=== PATIENT | female | born 1985 | race Caucasian/White ===

== ENCOUNTER 2018-05-17 08:13 | Emergency (ER) | payer OTHER ==
[~2018-05-17] VITALS: Ht 165.1 cm; Wt 62.6 kg
[~2018-05-17 08:13] MED LIST: OXYC10TE14 PO; PAX10 PO; TRAM50TA1 PO
[2018-05-17 08:20] VITALS: BP 126/72
--- NOTE | 2018-05-17 08:35 | NUR ---
pt bib self with c/o right sided groin pain radiating to left sided groin pain x 1 week, worse yesterday. Patient also reports of chills, but denies any n/v/d, vaginal bleeding, vaginal discharge, or recent injury. hx--pancreatitis, rx--tramadol. PATIENT STATES PAIN OF 10/10 AT THIS TIME; VSS; PATIENT POSITIONED FOR COMFORT; HOB ELEVATED; BEDRAILS UP X1; BED DOWN. ER MD MADE AWARE OF PT STATUS.
[2018-05-17] MEDS ORDERED: ONDANSETRON 4 MG/2 ML VIAL IVP ONE (09:00)
[2018-05-17] MEDS ORDERED: NACL 0.9% 1,000 ML IV ONE (09:00)
[2018-05-17] MEDS ORDERED: KETOROLAC 30 MG/ML VIAL IVP ONE (09:00)
[2018-05-17 09:17] LABS: LYMPHOCYTES # (AUTO) 0.4 K/uL (2.5-16.5); MEAN CORPUSCULAR HEMOGLOBIN 19 pg (27-31); MONOCYTES # (AUTO) 0.7 K/uL (0.8-1.0); NEUTROPHILS # (AUTO) 11.7 K/uL (1.8-7.7); RED CELL DISTRIBUTION WIDTH 20.4 % (11.6-13.7); WHITE BLOOD COUNT (AUTO) 12.9 K/uL (4.8-10.8)
[2018-05-17 09:22] LABS: BASOPHILS % (AUTO) 0.3 % (0.0-2.0); HEMATOCRIT 27.9 % (36-48); LYMPHOCYTES % (AUTO) 2.9 % (20.5-51.1); MEAN CORPUSCULAR HGB CONC 29 g/dL (33-37); MEAN CORPUSCULAR VOLUME 65.2 fL (80-94); MONOCYTES % (AUTO) 5.7 % (1.7-9.3); NEUTROPHILS % (AUTO) 91.1 % (42.2-75.2); PLATELET COUNT (AUTO) 162 K/uL (140-450); RED BLOOD CELL COUNT(AUTO) 4.28 MIL/uL (4.20-5.40)
[2018-05-17 09:39] LABS: ALBUMIN 3.3 g/dL (3.4-5.0); ANION GAP 16.9 (8-16); CARBON DIOXIDE 24.8 mmol/L (21-32); CREATININE 0.8 mg/dL (0.6-1.3); POTASSIUM 3.7 mmol/L (3.5-5.1); TOTAL BILIRUBIN 1.9 mg/dL (0.0-1.0)
[2018-05-17] MEDS ORDERED: fentaNYL 0.05 MG/ML VIAL IVP ONE (11:05)
[2018-05-17 12:12] VITALS: BP 120/76
--- NOTE | 2018-05-17 12:12 | NUR ---
Patient discharged with v/s stable. Written and verbal after care instructions given and explained. Patient alert, oriented and verbalized understanding of instructions.Ambulatory with steady gait. All questions addressed prior to discharge. ID band removed. Patient advised to follow up with PMD. Rx of zofran odt, tramadol 50mg, motrin 800mg given. Patient educated on indication of medication including possible reaction and side effects. Opportunity to ask questions provided and answered.
== END 2018-05-17 12:12 | disposition home or self-care (01) ==
LOC: MED 08:13
DX: N83.202 Unspecified ovarian cyst, left side (principal); E11.9 Type 2 diabetes mellitus without complications; Z79.899 Other long term (current) drug therapy
CPT/HCPCS: 36415; 76830; 80053; 81002; 81025; 82948; 85025; 96374; 96375; 99285; J1885; J2405; J3010; Q0092; J7030

== ENCOUNTER 2018-05-24 08:33 | Inpatient (IN) | payer OTHER ==
[~2018-05-24] VITALS: Ht 160 cm; Wt 61.2 kg
[2018-05-24 08:38] VITALS: BP 120/83
--- NOTE | 2018-05-24 08:45 | NUR ---
PATIENT AMBULATED TO BED 2 AT THIS TIME.
--- NOTE | 2018-05-24 08:59 | NUR ---
32 YO F TO ER FOR ABD PAIN X1WK. PT SEEN FOR ABDOMINAL/PELVIC PAIN LAST WEEK, WENT TO [facility] 2 DAYS AGO, SAW [facility]IMARY YESTERDAY AND WAS REFERRED BACK TO ER FOR ABDOMINAL PAIN, WATER RETENTION, ABDOMINAL DISTENTION, AND ABNORMAL LABS. PAIN 10/10. REPORTS NAUSEA, DENIES V/D. ABD ROUND/ FIRM / TENDER. BS ACTIVE. LS CLEAR THROUGHOUGHT, -CP, -SOB. BRISK CAP REFILL, AAOX4. PT STATS BURNING AND PAIN WITH URINATION. WILL CONTINUE TO MONITOR. ER MD MADE AWARE. HX: PANCREATITIS, ILIOSTOMY WITH REVERSAL , GALL BLADDER REMOVAL RX: NORCO
--- NOTE | 2018-05-24 08:59 | NUR ---
Note undone in EDM - 05/24/18 at 0928 by [facility] 32 YO F TO ER FOR ABD PAIN X1WK. PT SEEN FOR ABDOMINAL/PELVIC PAIN LAST WEEK, WENT TO [facility] 2 DAYS AGO, SAW [facility]IMARY YESTERDAY AND WAS REFERRED BACK TO ER FOR ABDOMINAL PAIN, WATER RETENTION, ABDOMINAL DISTENTION, AND ABNORMAL LABS. PAIN 05/09. REPORTS NAUSEA, DENIES V/D. ABD ROUND/ FIRM / TENDER. BS ACTIVE. LS CLEAR THROUGHOUGHT, -CP, -SOB. BRISK CAP REFILL, AAOX4. PT STATS BURNING AND PAIN WITH URINATION. WILL CONTINUE TO MONITOR. ER MADE AWARE. HX: PANCREATITIS, ILIOSTOMY WITH REVERSAL , GALL BLADDER REMOVAL RX: NORCO
--- NOTE | 2018-05-24 09:01 | NUR ---
Patient being evaluated by physician at bedside.
--- NOTE | 2018-05-24 09:32 | NUR ---
DR SOLIS AT BEDSIDE FOR PT EVALUATION
[2018-05-24] MEDS ORDERED: ONDANSETRON 4 MG/2 ML VIAL IVP ONE (09:35)
[2018-05-24] MEDS ORDERED: MORPHINE SULFATE 4 MG/ML SYR IVP ONE ×2 (09:35→11:30)
--- NOTE | 2018-05-24 09:39 | NUR ---
LAB AT BEDSIDE
--- NOTE | 2018-05-24 09:47 | NUR ---
EMT AT BEDSIDE FRO EKG
[2018-05-24 10:02] LABS: BASOPHILS % (AUTO) 0.2 % (0.0-2.0); EOSINOPHILS % (AUTO) 0.4 % (0.0-4.0); HEMATOCRIT 22.1 % (36-48); LYMPHOCYTES # (AUTO) 0.7 K/uL (2.5-16.5); LYMPHOCYTES % (AUTO) 6.9 % (20.5-51.1); MEAN CORPUSCULAR HEMOGLOBIN 20 pg (27-31); MEAN CORPUSCULAR HGB CONC 30 g/dL (33-37); MEAN CORPUSCULAR VOLUME 65.4 fL (80-94); MONOCYTES # (AUTO) 0.6 K/uL (0.8-1.0); MONOCYTES % (AUTO) 5.8 % (1.7-9.3); NEUTROPHILS # (AUTO) 9.2 K/uL (1.8-7.7); NEUTROPHILS % (AUTO) 86.7 % (42.2-75.2); PLATELET COUNT (AUTO) 257 K/uL (140-450); RED BLOOD CELL COUNT(AUTO) 3.38 MIL/uL (4.20-5.40); RED CELL DISTRIBUTION WIDTH 21.1 % (11.6-13.7); WHITE BLOOD COUNT (AUTO) 10.6 K/uL (4.8-10.8)
[2018-05-24 10:16] LABS: ALBUMIN 2.3 g/dL (3.4-5.0); CARBON DIOXIDE 28.6 mmol/L (21-32); CREATININE 0.8 mg/dL (0.6-1.3); TOTAL BILIRUBIN 0.6 mg/dL (0.0-1.0)
--- NOTE | 2018-05-24 10:20 | NUR ---
PT RESTING IN BED WITH VSS. WILL CONTINUE TO MONITOR
[2018-05-24 10:29] LABS: HEMOGLOBIN 6.6 g/dL (12.0-16.0)
[2018-05-24 10:31] LABS: POTASSIUM 2.6 mmol/L (3.5-5.1)
[2018-05-24 10:32] LABS: APPEARANCE,URINE SLIGHTLY HAZY (CLEAR); COLOR,URINE YELLOW (YELLOW)
[2018-05-24 10:33] LABS: BILIRUBIN,URINE NEGATIVE (NEGATIVE); BLOOD, URINE NEGATIVE (NEGATIVE); LEUKOCYTE ESTERASE ,URINE NEGATIVE (NEGATIVE); NITRITE, URINE NEGATIVE (NEGATIVE); PH,URINE 6.5 (5.0-9.0); RBC,URINE NONE SEEN /HPF (0-5); UGLUCOSE NEGATIVE (NEGATIVE)
[2018-05-24 10:34] LABS: WBC,URINE 0-5 (RARE) /HPF (0-5)
[2018-05-24 10:34] LABS: PROTHROMBIN TIME 9.4 secs (10.8-13.4)
[2018-05-24] MEDS ORDERED: MAG SULF 2000 MG/WATER PREMIX 50 ML IV ONE (10:35)
[2018-05-24] MEDS ORDERED: KCL 20 MEQ/WATER INJ PREMIX 100 ML IV ONE (10:35)
[2018-05-24] MEDS ORDERED: HYDROcodone/APAP 5/325 MG 1 TAB TAB PO PRN (12:10)
[2018-05-24] MEDS ORDERED: ONDANSETRON 4 MG/2 ML VIAL IVP PRN (12:10)
--- NOTE | 2018-05-24 12:34 | NUR ---
PT RESTING IN NO APPEARENT DISTRESS WITH VSS. WILL CONTINUE TO MONITOR
--- NOTE | 2018-05-24 13:10 | NUR ---
Patient will be admitted to care of DR HUBER. Admited to TELE. Will go to room 107B. Belongings list completed. Report to SARKIS ESTRADA .
--- NOTE | 2018-05-24 14:00 | NUR ---
RECEIVED REPORT FROM ER VENITA AT BEDSIDE. PT CAN AMBULATE. 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 PT IS AOX4, SKIN IS INTACT, SELF AMBULATORY. VS NOTED NORMAL. O2 SAT 100% ON RA. NO SIGN OF DISTRESS NOTED. INFORMED PT THAT CAN POSSIBLY BE TRANSFUSING BLOOD IN PT BECAUSE OF LOW H&H. VERBALIZED UNDERSTANDING COLLECTED MRSA SWAN AND SENT TO LAB. PLACED CALL LIGHT WITHIN PT REACH. BED AT LOWER POSITION. DENIES PAIN AT THIS TIME. INFORMED HER TO USE CALL LIGHT FOR ANY HELP. PT HAS RT FA 20 G IV ACCESS. INFUSING K-RIDER FROM ER. VERBALIZED UNDERSTANDING. WILL CONTINUE TO MONITOR PT.
[2018-05-24] MEDS: MORPHINE SULFATE 4 MG/ML SYR IVP PRN ×2 (16:14→20:23)
--- NOTE | 2018-05-24 16:30 | NUR ---
OBTAINED CONSENT FOR BT FROM PT. PT AWAKE , WENT TO RESTROOM. NOS IGN OF DISTRESS NOTED. WILL PREPARE FOR BLOOD TRANSFUSION . VS NOTED T 98.9, BP 111/68, HR 91, RR 20, 02 SAT 100% ON RA . WILL OBTAIN BLOOD FROM LAB, PREPARED FOR BLOOD TRANSFUSION. WILL CONTINUE TO MONITOR PT.
--- NOTE | 2018-05-24 16:45 | NUR ---
INITIATED BLOOD TRANSFUSION ORDERED AND PER HOSPITAL PROTOCOL. NATALIE ESCOBAR WITNESSED THE PROCEDURE AND VERIFIED THE BLOOD PRODUCT. PT STABLE AND CALM. NO DISTRESS NOTED. WILL CONTINUE TO MONITOR PT EVRY 15 MIN FOR OBSERVING ANY TRANSFUSION REACTION AND THEN FOR HALF HOUR AND THEN EVERY HOUR UNTIL THE BLOOD TRANSFUSION IS COMPLETED. WILL CONTINUE TO MONITOR PT.
--- NOTE | 2018-05-24 19:20 | NUR ---
ENDORSED PT TO PM NURSE AT BEDSIDE FOR CONTUINITY OF CARE. PT IN STABLE CONDITION. BLOOD TRANSFUSING WELL. NO SIGN OF DISTRESS.
--- NOTE | 2018-05-24 19:21 | NUR ---
RECEIVED REPORT FROM DAY SHIFT RN, FOR CONTINUITY OF CARE. PT IS A/OX4, ON ROOM AIR. PT IS ABLE TO MAKE NEEDS KNOWN, ABLE TO FOLLOW COMMANDS. PT BREATHS EQUAL AND UNLABORED. PT SKIN IS INTACT. PT AMBULATES WITH STEADY GAIT. PT HAS A 20G IV TO LEFT AC, ASYMPTOMATIC AND INTACT. DISCUSSED PLAN OF CARE WITH PT, PT VERBALIZED UNDERSTANDING. VITAL SIGNS WITHIN NORMAL LIMITS. PT STABLE, NO SIGNS OF DISTRESS NOTED AT THIS TIME. BED IN LOWEST POSITION, BED ALARM ON. CALL LIGHT WITHIN REACH, WILL CONTINUE TO MONITOR.
--- NOTE | 2018-05-24 19:55 | NUR ---
BLOOD TRANSFUSION ENDED. VITAL SIGNS WITHIN NORMAL LIMITS. PT STABLE, NO SIGNS OF DISTRESS NOTED AT THIS TIME. BED IN LOWEST POSITION, BED ALARM ON. CALL LIGHT WITHIN REACH, WILL CONTINUE TO MONITOR.
[2018-05-24] MEDS: ACETAMINOPHEN 325 MG TAB PO PRN (19:59)
[2018-05-24 20:00] VITALS: BP 121/77
--- NOTE | 2018-05-24 20:25 | NUR ---
ADMINISTERED MORPHINE FOR PAIN, PT TOLERATED WELL.
[2018-05-24] MEDS: diphenhydrAMINE 50 MG/ML VIAL IVP PRN (21:23)
[2018-05-24] MEDS ORDERED: DOXYCYCLINE 100 MG in DEXTROSE 5% 100 ML IV SCH (21:25)
--- NOTE | 2018-05-24 21:25 | NUR ---
DR HUBER HERE TALKING TO PT, RECEIVED VERBAL ORDER FOR BENADRYL 25MG IVP BEFORE TRANSFUSION AND BENADRYL 25MG PO Q4H PRN ITCHING. DR HUBER ARRANGING FOR DR CUETO TO CONSULT WITH PT.
[2018-05-24] MEDS ORDERED: metroNIDAZOLE 500 MG/NS PREMIX 100 ML IV SCH (22:30)
[2018-05-24] MEDS ORDERED: FUROSEMIDE 20 MG/2 ML VIAL IVP SCH (22:30)
--- NOTE | 2018-05-24 23:00 | NUR ---
DR CUETO CALLED TO MAKE SURE PT GOT 3 UNITS OF BLOOD, A HENDERSON CATHETER WITH URINE SENT TO LAB, TO STOP GIVING MORPHINE FOR PAIN, AND FOR PT TO BE NPO AFTER MIDNIGHT.
[2018-05-25 00:12] VITALS: BP 112/67
--- NOTE | 2018-05-25 00:55 | NUR ---
BLOOD TRANSFUSION STARTED, SIGNS OF DISTRESS NOTED AT THIS TIME. WILL MONITOR CLOSELY. Addendum: 05/25/18 at 0640 by Stacia Borja RN DISREGARD, WRONG INTERVENTION.
--- NOTE | 2018-05-25 00:55 | NUR ---
BLOOD TRANSFUSION ENDED, PT TOLERATED WELL. VITAL SIGNS WITHIN NORMAL LIMITS. PT STABLE, NO SIGNS OF DISTRESS NOTED AT THIS TIME. BED IN LOWEST POSITION, BED ALARM ON. CALL LIGHT WITHIN REACH, WILL CONTINUE TO MONITOR.
[2018-05-25] MEDS: ACETAMINOPHEN 325 MG TAB PO PRN (01:45)
[2018-05-25] MEDS: diphenhydrAMINE 50 MG/ML VIAL IVP PRN (01:48)
[2018-05-25] MEDS: LEVOFLOXACIN 500 MG/D5W PREMIX 100 ML IV SCH ×2 (01:49→23:48)
[2018-05-25 01:56] LABS: APPEARANCE,URINE CLEAR (CLEAR); BILIRUBIN,URINE NEGATIVE (NEGATIVE); BLOOD, URINE NEGATIVE (NEGATIVE); COLOR,URINE YELLOW (YELLOW); LEUKOCYTE ESTERASE ,URINE NEGATIVE (NEGATIVE); NITRITE, URINE NEGATIVE (NEGATIVE); PH,URINE 7.5 (5.0-9.0); UGLUCOSE NEGATIVE (NEGATIVE)
--- NOTE | 2018-05-25 02:00 | NUR ---
TRIED TO GET THIRD UNIT OF BLOOD FROM LAB. THIRD UNIT WAS NOT RELEASED DUE TO HOSPITAL POLICY ON BLOOD TRANSFUSION, CBC NEEDS TO BE DRAWN AFTER 2 UNITS. CBC WILL BE DRAWN.
[2018-05-25 03:17] LABS: BASOPHILS % (AUTO) 0.1 % (0.0-2.0); EOSINOPHILS # (AUTO) 0.1 K/uL (0-0.4); EOSINOPHILS % (AUTO) 0.7 % (0.0-4.0); HEMATOCRIT 28.3 % (36-48); LYMPHOCYTES # (AUTO) 0.8 K/uL (2.5-16.5); LYMPHOCYTES % (AUTO) 7.2 % (20.5-51.1); MEAN CORPUSCULAR HEMOGLOBIN 22 pg (27-31); MEAN CORPUSCULAR HGB CONC 31 g/dL (33-37); MEAN CORPUSCULAR VOLUME 70.3 fL (80-94); MONOCYTES # (AUTO) 0.7 K/uL (0.8-1.0); MONOCYTES % (AUTO) 6.3 % (1.7-9.3); NEUTROPHILS # (AUTO) 9.2 K/uL (1.8-7.7); NEUTROPHILS % (AUTO) 85.7 % (42.2-75.2); PLATELET COUNT (AUTO) 286 K/uL (140-450); RED BLOOD CELL COUNT(AUTO) 4.02 MIL/uL (4.20-5.40); RED CELL DISTRIBUTION WIDTH 24.9 % (11.6-13.7); WHITE BLOOD COUNT (AUTO) 10.8 K/uL (4.8-10.8)
[2018-05-25 03:23] LABS: HEMOGLOBIN 8.9 g/dL (12.0-16.0)
--- NOTE | 2018-05-25 03:30 | NUR ---
TALKED TO DR HEALY ABOUT NOT BEING ABLE TO GET THIRD UNIT OF BLOOD FOR PT, DUE TO HOSPITAL PROTOCOL AND AUTOMATIC TOE LASTER NOT GIVING UNIT. DR HEALY SAID TO TELL THE AUTOMATIC TOE LASTER IT IS A DR ORDER AND IT HAS TO BE DONE. AUTOMATIC TOE LASTER STILL SAYS IT CANNOT BE DONE. WILL CALL DR CUETO.
[2018-05-25] MEDS ORDERED: LACTATED RINGERS 1,000 ML IV SCH ×2 (03:55→08:30)
--- NOTE | 2018-05-25 03:55 | NUR ---
SPOKE TO DR CUETO ABOUT NOT BEING ABLE TO GET THIRD UNIT OF PRBC'S FROM LAB DUE TO PROTOCOL. DR VALENTE SAID IT WAS OK, WE WILL CHECK LABS AGAIN IN THE [place] AND GO FROM THERE. DR CUETO ALSO ORDERED LR FLUIDS @150ML/HR UNTIL AROUND 08:00, AT 08:00 RATE IS TO CHANGE TO 125ML/HR.
[2018-05-25 04:00] VITALS: BP 101/63
[2018-05-25] MEDS: metroNIDAZOLE 500 MG/NS PREMIX 100 ML IV SCH ×3 (05:13→21:37)
[2018-05-25 05:20] LABS: MAGNESIUM 2.1 mg/dL (1.8-2.4)
[2018-05-25 05:21] LABS: CARBON DIOXIDE 30.1 mmol/L (21-32); CREATININE 0.9 mg/dL (0.6-1.3); POTASSIUM 3.1 mmol/L (3.5-5.1); TOTAL BILIRUBIN 1.8 mg/dL (0.0-1.0)
[2018-05-25] MEDS ORDERED: INFLUENZA VIRUS VACCINE QUAD 0.5 ML SYR IMVAC PRN (07:05)
--- NOTE | 2018-05-25 07:25 | NUR ---
ENDORSED TO DAY SHIFT RN FOR CONTINUITY OF CARE, PT IN STABLE CONDITION.
--- NOTE | 2018-05-25 07:26 | NUR ---
RECEIVED REPORT FROM PM NURSE AT BEDSIDE. PT STABLE AND AWAKE. NO SIGN OF DISTRESS NOTED. KEPT NPO OFR POSSIBLE PROCEDURE. IVF INFUSING WELL. HAS FC IN PLACE. DRAINING WELL. PLACED CALL LIGHT WITHIN PT REACH. INFORMED TO USE CALL LIGHT FOR ANY HELP. WILL CONTINUE TO MONITOR PT.
[2018-05-25 08:00] VITALS: BP 95/54
--- NOTE | 2018-05-25 08:15 | NUR ---
DR CUETO PAGED AT [phone] REGARDING INDICATION FOR INTRAVENOUS PYELOGRAM PER RADIOLOGY.
--- NOTE | 2018-05-25 08:19 | NUR ---
RECEIVED CALL FROM RADIOLOGY, ASKING FOR INDICATION THAT MD HAS PLACED IV PYELOGRAM FOR PT. CHARGE NURSE AWARE ,CONTACTING DR VALENTE.
--- NOTE | 2018-05-25 08:37 | NUR ---
PATIENT HAS BEEN SCREENED AND CATEGORIZED MODERATE NUTRITION RISK. PATIENT WILL BE SEEN WITHIN 3-5 DAYS OF ADMISSION. 05/27/18 05/29/[address]
--- NOTE | 2018-05-25 08:40 | NUR ---
DR CUETO CALLED AT THE OFFICE, , TOLD TO PAGE DR CUETO AT [phone] CUETO PAGED AT THIS NUMBER NOW.
[2018-05-25] MEDS ORDERED: DOXYCYCLINE 100 MG in DEXTROSE 5% 100 ML IV SCH (09:00)
[2018-05-25] MEDS ORDERED: SODIUM PHOSPHATE 118 ML ENEM RC PRN (09:20)
--- NOTE | 2018-05-25 09:23 | NUR ---
CALLED RADIOLOGY. INFORMED HER THAT PT NEEDS IV PYELOGRAM TO RULE OUT URETER OBSTRUCTION PER DR VALENTE, CHARGE NURSE AWARE. WILL GIVE FLEET ENEMA FIRST.
--- NOTE | 2018-05-25 10:20 | NUR ---
PT REQUESTED TO ADMINISTER FLEET BY HERSELF, CHARGE NURSE AWARE, OKAY WITH IT. INFORMED PT TO SQUEEZE ALL AMOUNT IN BOTTLE AND HOLD LONG SHE CAN IF SHE FEELS LIKE GOING TO RESTROOM. VERBALIZED UNDERSTANDING. LUBED BOTTLE OF FLEET ENEMA, GAVE TO PT. INFORMED HER TO USE CALL LIGHT FOR ANY HELP. PROVIDED PRIVACY TO PT. WILL CONTINUE TO MONITOR PT.
[2018-05-25 12:00] VITALS: BP 106/68
--- NOTE | 2018-05-25 14:30 | NUR ---
PT OUT FORM THE UNIT FOR XR OF ABDOMEN WITH CONTRAST. PT STABLE AT THIS TIME. WENT WITH STRAP CUTTER. WILL CONTINUE TO MONITOR PT.
--- NOTE | 2018-05-25 15:54 | NUR ---
Initial review faxed to [facility].
[2018-05-25 16:00] VITALS: BP 101/69
[2018-05-25] MEDS: MORPHINE SULFATE 4 MG/ML SYR IVP PRN ×2 (17:33→23:56)
[2018-05-25] MEDS: POTASSIUM CHL 20MEQ/D5-NS 1,000 ML IV SCH (17:34)
--- NOTE | 2018-05-25 17:45 | NUR ---
ADMINISTERED MORPHINE FOR PAIN TO PTAS PER DR HUBER ORDER. STARTED POTASSIUM 20 MEQ D5,.5NS @100 ML/HR TO PT FOR LOW POTASSIUM LEVEL. PT TOLERATE WELL. NO SIGN OF DISTRESS NOTED. WILL CONTINUE TO MONITOR PT.
--- NOTE | 2018-05-25 18:30 | NUR ---
DR VALENTE WITH PT. CHARGE NURSE AT BEDSIDE, EXAMINING PT. WILL CONTINUE TO MONITOR PT.
--- NOTE | 2018-05-25 19:30 | NUR ---
ENDORSED PT TO P NURSE AT BEDSIDE. PT IN STABLE CONDITION. DR VALENTE AT BEDSIDE. FAMILY MEMBER AT BEDSIDE.
--- NOTE | 2018-05-25 19:32 | NUR ---
RECEIVED REPORT FROM DAY SHIFT NURSE. AAOX4. FAMILY AT BEDSIDE. NO C/O PAIN OR SOB NOTED. IV TO LEFT AC #20G, SALINE LOCK AND RIGHT HAND #22G, PATENT AND INTACT. HENDERSON CATH IN PLACE, DRAINING CLEAR YELLOW URINE. DISCUSSED PLAN OF CARE, PT VERBALIZED UNDERSTANDING. SAFETY PRECAUTION IN PLACE. CALL LIGHT WITHIN REACH.
[2018-05-25 20:00] VITALS: BP 112/63
--- NOTE | 2018-05-25 20:00 | NUR ---
DR. CUETO ORDERED TO D/C HENDERSON CATH. HENDERSON CATH REMOVED. NO C/O PAIN.
--- NOTE | 2018-05-25 23:56 | NUR ---
PT C/O ABD PAIN 03/09. MORPHINE 4 MG IVP GIVEN.
[2018-05-26] VITALS (7 sets, daily range): BP systolic 98–118; BP diastolic 61–77
--- NOTE | 2018-05-26 02:45 | NUR ---
PT SLEEPING BUT EASILY AROUSABLE. NO S/S OF PAIN. NO RESP DISTRESS NOTED.
[2018-05-26] MEDS: POTASSIUM CHL 20MEQ/D5-NS 1,000 ML IV SCH ×2 (03:15→13:15)
--- NOTE | 2018-05-26 05:00 | NUR ---
PT SLEEPING. RESP EVEN AND UNLABORED. NO S/S OF PAIN.
[2018-05-26] MEDS: metroNIDAZOLE 500 MG/NS PREMIX 100 ML IV SCH ×3 (05:44→20:31)
[2018-05-26] MEDS: MORPHINE SULFATE 4 MG/ML SYR IVP PRN ×3 (06:16→18:39)
[2018-05-26 06:20] LABS: BASOPHILS % (AUTO) 0.3 % (0.0-2.0); EOSINOPHILS # (AUTO) 0.1 K/uL (0-0.4); EOSINOPHILS % (AUTO) 1.3 % (0.0-4.0); HEMATOCRIT 26.4 % (36-48); HEMOGLOBIN 8.1 g/dL (12.0-16.0); LYMPHOCYTES # (AUTO) 0.7 K/uL (2.5-16.5); LYMPHOCYTES % (AUTO) 7.8 % (20.5-51.1); MEAN CORPUSCULAR HEMOGLOBIN 22 pg (27-31); MEAN CORPUSCULAR HGB CONC 31 g/dL (33-37); MEAN CORPUSCULAR VOLUME 70.7 fL (80-94); MONOCYTES # (AUTO) 0.6 K/uL (0.8-1.0); MONOCYTES % (AUTO) 7.5 % (1.7-9.3); NEUTROPHILS % (AUTO) 83.1 % (42.2-75.2); PLATELET COUNT (AUTO) 288 K/uL (140-450); RED BLOOD CELL COUNT(AUTO) 3.73 MIL/uL (4.20-5.40); RED CELL DISTRIBUTION WIDTH 24.9 % (11.6-13.7); WHITE BLOOD COUNT (AUTO) 8.4 K/uL (4.8-10.8)
[2018-05-26 07:00] LABS: ALBUMIN 1.7 g/dL (3.4-5.0); ANION GAP 9.6 (8-16); CARBON DIOXIDE 28.3 mmol/L (21-32); CREATININE 0.7 mg/dL (0.6-1.3); TOTAL BILIRUBIN 0.6 mg/dL (0.0-1.0)
--- NOTE | 2018-05-26 07:11 | NUR ---
RECEIVED CRITICAL LAB VALUE K 2.9. WILL PAGE DR. MURRIETA, MISSION PLANNER FOR DR. HUBER.
[2018-05-26 07:12] LABS: POTASSIUM 2.9 mmol/L (3.5-5.1)
--- NOTE | 2018-05-26 07:15 | NUR ---
PAGED DR. MURRIETA. AWAITING FOR CALL BACK.
--- NOTE | 2018-05-26 07:16 | NUR ---
ENDORSED PT TO DAY SHIFT NURSE. PT IN STABLE CONDITION.
--- NOTE | 2018-05-26 07:18 | NUR ---
RECEIVED A CALL FROM DR. HUBER. MADE AWARE OF PT'S K LEVEL 2.9. MD TO SEE PT.
--- NOTE | 2018-05-26 07:27 | NUR ---
RECEIVED REPORT FROM HUMAN RESOURCES MANAGER MANUFACTURING RN. PT IN STABLE CONDITION, AO X4. SITTING UP IN BED AND SMILING, NO COMPLAINTS OF PAIN OR DISCOMFORT AT THIS TIME. SKIN INTACT. LUNGS CTA. HEART RHYTHM REGULAR. IV SITE PATENT AND ASYMPTOMATIC, INFUSING IVF PER MD ORDERS. UPDATED BOARD AND INTRODUCED SELF. EXPLAINED PLAN OF CARE TO PATIENT. ALL SAFETY PRECAUTIONS IN PLACE, WILL CONTINUE TO MONITOR. HUMAN RESOURCES MANAGER MANUFACTURING RN WILI HAS PAGED DR. MURRIETA REGARDING LOW POTASSIUM LEVEL OF 2.9. DR. MURRIETA AWARE.
[2018-05-26] MEDS ORDERED: SODIUM PHOSPHATE 118 ML ENEM RC SCH (08:00)
--- NOTE | 2018-05-26 08:02 | NUR ---
PT WOULD LIKE TO SELF-ADMINISTER THE FLEET ENEMA. EXPLAINED HOW TO ADMINISTER THE FLEET ENEMA. PT VERBALIZED UNDERSTANDING AND SAYS SHE SELF-ADMINISTERED IT YESTERDAY WELL.
--- NOTE | 2018-05-26 08:18 | NUR ---
PER US TECH, PATIENT DOES NOT HAVE TO BE NPO BEFORE US PELVIC BUT SHOULD HAVE A FULL BLADDER IF POSSIBLE. NOTIFIED PATIENT THAT US TECH WILL BE HERE IN 20-30 MINUTES AND THAT FULL BLADDER WOULD HELP WITH THE STUDY. PT VERBALIZED COMPLETE UNDERSTANDING. PT STILL HAS NOT SELF-ADMINISTERED FLEET ENEMA. PT STATES SHE WILL EAT NOW AND DO THE FLEET ENEMA AFTER THE US PELVIC.
--- NOTE | 2018-05-26 08:52 | NUR ---
PAGEYolis HUBER REGARDING LOW POTASSIUM OF 2.9 SINCE THERE ARE NO ORDERS YET. Addendum: 05/26/18 at 0927 by Tamara Chandler Meng, RN PT IN STABLE CONDITION, SINUS RHYTHM ON TELE. NO COMPLAINTS OF DISCOMFORT.
[2018-05-26] MEDS ORDERED: KCL 20 MEQ/WATER INJ PREMIX 200 ML IV SCH (10:00)
[2018-05-26] MEDS ORDERED: POTASSIUM CHLORIDE 10 MEQ TABER PO SCH (10:00)
--- NOTE | 2018-05-26 10:12 | NUR ---
PHARMACIST TO CLARIFY WITH DR. HUBER REGARDING PARESH MEEHAN POTASSIUM CHLORIDE, ALONG WITH IVF D4NS+20MEQ POTASSIUM. Addendum: 05/26/18 at 1013 by Tamara Chandler Meng RN IVF D5NS+20MEQ POTASSIUM.
--- NOTE | 2018-05-26 10:41 | NUR ---
PER PHARMACY, PATIENT IS TO RECEIVE KRIDER 40 MEQ OVER 4 HOURS TOTAL. ONLY PULLED OUT ONE BAG 20MQ KRIDER FROM [employer]. WILL GO TO PHARMACY TO OBTAIN SECOND BAG. Addendum: 05/26/18 at 1046 by Tamara Chandler Meng RN PER PHARMACIST, DR. HUBER TO CONTINUE TO D5NS +20MEQ AT 100ML/HR.
--- NOTE | 2018-05-26 10:46 | NUR ---
MULTIPLE EFFECT EVAPORATOR OPERATOR DROPPED OFF SECOND BAG K RIDER TO UNIT.
--- NOTE | 2018-05-26 11:23 | NUR ---
PATIENT COMPLAINING OF PAIN AT IV SITE FROM K RIDER. DECREASED RATE TO 20 ML/HOUR AND PATIENT WAS TOLERATING.
--- NOTE | 2018-05-26 11:34 | NUR ---
DR HUBER IN THE UNIT WANTED PATIENT TO BE TRANSFERRED TO HIGHER LEVEL OF CARE FOR PELVIC MASS CALLED IE SPOKE WITH JIMMY AND ALSO DR HUBER TALK TO JIMMY AND EXPLAINED AND JIMMY WILL CALL US BACK WITH AUTHORIZATION FOR TRANSFER.
--- NOTE | 2018-05-26 11:55 | NUR ---
RUNNING NS ALONG WITH K RIDER AT 50 ML/HOUR. PATIENT TOLERATING WELL.
--- NOTE | 2018-05-26 12:00 | NUR ---
JIMMY CALLED [employer] AND GAVE AUTHORIZATION FOR [facility] AND [facility] [phone] FOR BOTH.
--- NOTE | 2018-05-26 12:10 | NUR ---
SPOKE WITH SHABANA FROM [facility] ,REQUESTED ALL PATIENT'S INFORMATION, AND TO BE FAXED TO [phone] AND FAXED ALL PAPERWORK.
--- NOTE | 2018-05-26 13:05 | NUR ---
PATIENT HAS REFUSED KUB. DR. CUETO STATED THAT SHE DOES NOT NEED IT.
[2018-05-26 13:50] LABS: RAPID PLASMA REAGIN NON-REACTIVE (Non Reactiv)
--- NOTE | 2018-05-26 15:49 | NUR ---
PER KENYATTA AT [facility], SHE SENT THE PAPERWORK TO THEIR DOCTOR. THE DOCTOR STILL HAS TO ACCEPT THE PATIENT AND PT WILL NEED TO BE CLEARED BY INSURANCE. NO ETA ON TRANSFER. WILL INFORM THE PATIENT.
--- NOTE | 2018-05-26 17:27 | NUR ---
PT COMPLAINED OF IV SITE PAIN DURING INFUSION OF SECOND BAG OF K RIDER. PATIENT WANTS K RIDER TO BE STOPPED. WANTS TO RE-START WHEN IV MORPHINE AVAILABLE. OFFERED PO NORCO BUT PT REFUSES; WANTS TO WAIT FOR THE MORPHINE.
--- NOTE | 2018-05-26 18:45 | NUR ---
RE-STARTED SECOND BAG OF K RIDER. 60ML LEFT TO INFUSE. PT TOLERATING WELL, WILL CONTINUE TO MONITOR.
--- NOTE | 2018-05-26 18:51 | NUR ---
CALLED [facility]. THEY SAID PT MAY POSSIBLY BE TRANSFERRED TOMORROW, BUT DEFINITELY NOT TONIGHT.
--- NOTE | 2018-05-26 18:59 | NUR ---
REMOVED SL IV SITE ON LT AC. PATIENT WAS COMPLAINING OF ITCHING. DENIES PAIN AT RT HAND IV SITE INFUSING K RIDER. WILL CONTINUE TO MONITOR.
--- NOTE | 2018-05-26 19:27 | NUR ---
ENDORSED PLAN OF CARE TO NURSE PLASTICS RN. SHE IS AWARE OF TRANSFER PLANS. PT IN STABLE CONDITION.
--- NOTE | 2018-05-26 19:28 | NUR ---
RETURNED FLEET ENEMA TO [facility]. PT DID NOT USE.
--- NOTE | 2018-05-26 19:30 | NUR ---
RECEIVED REPORT FROM DAYSHIFT NURSE AT BEDSIDE FOR CONTINUITY OF CARE. PT AAOX4, IV NOTED R HAND 22G D5 1/2NS KCL 20 MEQ RATE 70ML/HR. NO SOB NO S/S OF DISTRESS ON RA. PT AMBULATORY. BED LOWERED CALL LIGHT WITHIN REACH WILL CONTINUE TO MONITOR.
--- NOTE | 2018-05-26 20:00 | NUR ---
PT WAS CRYING AND IN LOTS OF PAIN FROM IV FLUIDS K RIDER ON SECOND BAG. I STOPPED IT AND PT REFUSED TO RESTART. 20ML LEFT IN BAG. PLACED ICE BAG ON PT RIGHT ARM. WILL CONTINUE TO MONITOR.
--- NOTE | 2018-05-26 23:00 | NUR ---
NO SOB NO S/S OF DISTRESS ON RA. PT SLEEPING. WILL CONTINUE TO MONITOR.
[2018-05-27] MEDS: POTASSIUM CHL 20MEQ/D5-NS 1,000 ML IV SCH ×2 (00:39→09:15)
[2018-05-27] MEDS: MORPHINE SULFATE 4 MG/ML SYR IVP PRN ×4 (00:40→21:33)
[2018-05-27] MEDS: LEVOFLOXACIN 500 MG/D5W PREMIX 100 ML IV SCH ×2 (00:42→23:47)
--- NOTE | 2018-05-27 01:40 | NUR ---
PAIN MEDICATION 1HR AGO. PAIN MED EFFECTIVE PT IS SLEEPING NO SOB NO S/S OF DISTRESS ON RA. WILL CONTINUE TO MONITOR.
[2018-05-27 04:00] VITALS: BP 101/88
[2018-05-27] MEDS: metroNIDAZOLE 500 MG/NS PREMIX 100 ML IV SCH ×4 (04:49→21:33)
--- NOTE | 2018-05-27 05:30 | NUR ---
RECEIVED REPORT FROM JUSTINE ESTRADA. PT IS A&O X4 IS ON RA. NO DISTRESS NOTED. IV ON R HAND 22G. SKIN IS INTACT. PT DENIES PAIN AT THIS TIME. SAFETY MEASURES IN PLACE. CALL LIGHT WITHIN REACH.
--- NOTE | 2018-05-27 05:30 | NUR ---
ENDORSED REPORT TO DARIUSZ NIGHTSHIFT NURSE AT BEDSIDE FOR CONTINUITY OF CARE
[2018-05-27 06:57] LABS: BASOPHILS % (AUTO) 0.5 % (0.0-2.0); EOSINOPHILS # (AUTO) 0.1 K/uL (0-0.4); EOSINOPHILS % (AUTO) 1.6 % (0.0-4.0); HEMATOCRIT 29.8 % (36-48); LYMPHOCYTES # (AUTO) 0.9 K/uL (2.5-16.5); LYMPHOCYTES % (AUTO) 10.1 % (20.5-51.1); MEAN CORPUSCULAR HEMOGLOBIN 22 pg (27-31); MEAN CORPUSCULAR HGB CONC 30 g/dL (33-37); MEAN CORPUSCULAR VOLUME 72.7 fL (80-94); MONOCYTES # (AUTO) 0.5 K/uL (0.8-1.0); MONOCYTES % (AUTO) 6.3 % (1.7-9.3); NEUTROPHILS # (AUTO) 7.2 K/uL (1.8-7.7); NEUTROPHILS % (AUTO) 81.5 % (42.2-75.2); PLATELET COUNT (AUTO) 344 K/uL (140-450); RED BLOOD CELL COUNT(AUTO) 4.11 MIL/uL (4.20-5.40); RED CELL DISTRIBUTION WIDTH 25.7 % (11.6-13.7); WHITE BLOOD COUNT (AUTO) 8.8 K/uL (4.8-10.8)
--- NOTE | 2018-05-27 07:20 | NUR ---
RECEIVED BEDSIDE REPORT FROM AUTOMATION CONTROLS SPECIALIST RN. PT IN STABLE CONDITION. STATES 3/10 PELVIC PAIN BUT DOES NOT NEED PAIN MEDS AT THIS TIME. NO S/S ACUTE DISTRESS. LUNGS CTA. HEART RHYTHM REGULAR. PT IS AMBULATORY. IV SITE PATENT AND ASYMPTOMATIC, INFUSING IVF PER MD ORDERS. PENDING TRANSFER TO [facility]. ALL SAFETY PRECAUTIONS IN PLACE, WILL CONTINUE TO MONITOR.
--- NOTE | 2018-05-27 07:22 | NUR ---
ENDORSED PT TO DAY SHIFT. PT STABLE CONDITION
[2018-05-27 08:00] VITALS: BP 117/56
[2018-05-27 08:04] LABS: ANION GAP 11.4 (8-16); CARBON DIOXIDE 27.5 mmol/L (21-32); CREATININE 0.7 mg/dL (0.6-1.3); POTASSIUM 3.9 mmol/L (3.5-5.1); TOTAL BILIRUBIN 0.6 mg/dL (0.0-1.0)
[2018-05-27 08:05] LABS: ALBUMIN 1.9 g/dL (3.4-5.0)
--- NOTE | 2018-05-27 09:16 | NUR ---
ADMINISTERED MORPHINE IVP FOR C/O 02/06 PELVIC PAIN. VITALS STABLE. WILL CONTINUE TO MONITOR.
--- NOTE | 2018-05-27 10:30 | NUR ---
STOPPED D5NS+20 MEQ POTASSIUM PER MD ORDERS.
[2018-05-27 12:00] VITALS: BP 99/59
--- NOTE | 2018-05-27 12:37 | NUR ---
PER RAFA FROM [facility], TWO OF THEIR DOCTORS REJECTED THE CASE. THEY ARE STILL WORKING ON TRANSFER. [facility] RECOMMENDS REPEAT PELVIC US AND CT GUIDED DRAINAGE PELVIC FLUID COLLECTIONS. WILL CALL DR. HUBER TO INFORM. Addendum: 05/27/18 at 1253 by Tamara Chandler Meng, RN INFORMED REPLANTER JOWIE.
--- NOTE | 2018-05-27 14:38 | NUR ---
CALLED RAFA FROM [facility] [phone] HUBER REQUESTS THE [facility] DOCTOR TO CALL HIM DIRECTLY THIS IS A [id number] TRANSFER. RAFA SAID SHE WILL HAVE THE [facility] SKIVER HEEL TAP CALL DR. HUBER DIRECTLY.
--- NOTE | 2018-05-27 14:39 | NUR ---
NOTIFIED PATIENT THAT [facility] HAS NOT ACCEPTED HER AND THERE ARE NO TRANSFER DETAILS/PLANS FOR TODAY.
[2018-05-27 16:00] VITALS: BP 107/70
--- NOTE | 2018-05-27 17:13 | NUR ---
PER SURFBOARD MAKER JOWIE, SHE HAS ALREADY FAXED THE REQUESTED DOCUMENTS TO RAFA AT [facility].
--- NOTE | 2018-05-27 19:23 | NUR ---
ENDORSED PLAN OF CARE TO GIFT OFFICER RN. PT IN STABLE CONDITION.
--- NOTE | 2018-05-27 19:24 | NUR ---
RECEIVED REPORT FROM DAY SHIFT NURSE ANKITA-RN AT BEDSIDE. PT AOX4 WITH FAMILY AT BEDSIDE. AMBULATORY, ON ROOM AIR WITH IV SITE RIGHT HAND #22G-SL. SKIN INTACT. DISCUSSED PLAN OF CARE AND PT VERBALIZED UNDERSTANDING. NO S/S OF RESPIRATORY DISTRESS OR DISCOMFORT NOTED AT THIS TIME. BED IN LOWEST POSITION, BED BREAKS ON, BOTH SIDE RAILS UP. BED SIDE TABLE AND CALL LIGHT ARE WITHIN REACH. WILL CONTINUE TO MONITOR.
[2018-05-27 20:00] VITALS: BP 105/68
--- NOTE | 2018-05-27 20:00 | NUR ---
PT REPORTS PAIN 02/04 HOWEVER STATED SHE WILL WAIT UNTIL PAIN MEDICATION IS AVAILABLE BECAUSE ORAL PAIN MEDICATION "MAKES MY STOMACH HURT." NO S/S OF RESPIRATORY DISTRESS OR DISCOMFORT NOTED AT THIS TIME. WILL CONTINUE TO MONITOR.
--- NOTE | 2018-05-27 20:00 | NUR ---
VITAL SIGNS TAKEN AND TOLERATED WELL. NO S/S OF RESPIRATORY DISTRESS OR DISCOMFORT NOTED AT THIS TIME. WILL CONTINUE TO MONITOR.
--- NOTE | 2018-05-27 21:33 | NUR ---
SCHEDULED MEDICATION FLAGYL GIVEN AND TOLERATED WELL. IVF CHANGED TO NS 0.9% TKO 10ML/HR. NO S/S OF RESPIRATORY DISTRESS OR DISCOMFORT NOTED AT THIS TIME. WILL CONTINUE TO MONITOR.
--- NOTE | 2018-05-27 21:33 | NUR ---
MORPHINE GIVEN FOR PAIN 02/04. PT TOLERATED WELL. NO S/S OF RESPIRATORY DISTRESS OR DISCOMFORT NOTED AT THIS TIME. WILL CONTINUE TO MONITOR.
--- NOTE | 2018-05-27 23:47 | NUR ---
SCHEDULED MEDICATION LEVAQUIN GIVEN AND TOLERATED WELL. NO S/S OF RESPIRATORY DISTRESS OR DISCOMFORT NOTED AT THIS TIME. WILL CONTINUE TO MONITOR.
[2018-05-28] VITALS: BP 95/59
--- NOTE | 2018-05-28 | NUR ---
VITAL SIGNS TAKEN AND TOLERATED WELL. NO S/S OF RESPIRATORY DISTRESS OR DISCOMFORT NOTED AT THIS TIME. WILL CONTINUE TO MONITOR.
--- NOTE | 2018-05-28 02:00 | NUR ---
PT SLEEPING IN BED. NO S/S OF RESPIRATORY DISTRESS OR DISCOMFORT NOTED AT THIS TIME. WILL CONTINUE TO MONITOR.
[2018-05-28] MEDS: MORPHINE SULFATE 4 MG/ML SYR IVP PRN ×3 (03:41→14:24)
--- NOTE | 2018-05-28 03:41 | NUR ---
PT C/O PAIN 03/09 AND MEDICATED WITH MORPHINE. PT TOLERATED WELL. NO S/S OF RESPIRATORY DISCOMFORT NOTED AT THIS TIME. WILL CONTINUE TO MONITOR.
[2018-05-28 04:00] VITALS: BP 95/56
--- NOTE | 2018-05-28 04:00 | NUR ---
VITAL SIGNS TAKEN AND TOLERATED WELL. NO S/S OF RESPIRATORY DISCOMFORT NOTED AT THIS TIME. WILL CONTINUE TO MONITOR.
[2018-05-28] MEDS: metroNIDAZOLE 500 MG/NS PREMIX 100 ML IV SCH ×2 (04:54→13:08)
--- NOTE | 2018-05-28 04:54 | NUR ---
SCHEDULED MEDICATION FLAGYL GIVEN AND TOLERATED WELL. NO S/S OF RESPIRATORY DISCOMFORT NOTED AT THIS TIME. WILL CONTINUE TO MONITOR.
[2018-05-28 06:58] LABS: BASOPHILS % (AUTO) 0.4 % (0.0-2.0); EOSINOPHILS # (AUTO) 0.1 K/uL (0-0.4); EOSINOPHILS % (AUTO) 1.7 % (0.0-4.0); HEMATOCRIT 27.4 % (36-48); HEMOGLOBIN 8.2 g/dL (12.0-16.0); LYMPHOCYTES # (AUTO) 0.8 K/uL (2.5-16.5); LYMPHOCYTES % (AUTO) 9.5 % (20.5-51.1); MEAN CORPUSCULAR HEMOGLOBIN 22 pg (27-31); MEAN CORPUSCULAR HGB CONC 30 g/dL (33-37); MEAN CORPUSCULAR VOLUME 73.5 fL (80-94); MONOCYTES # (AUTO) 0.6 K/uL (0.8-1.0); MONOCYTES % (AUTO) 6.9 % (1.7-9.3); NEUTROPHILS # (AUTO) 7.3 K/uL (1.8-7.7); NEUTROPHILS % (AUTO) 81.5 % (42.2-75.2); PLATELET COUNT (AUTO) 363 K/uL (140-450); RED BLOOD CELL COUNT(AUTO) 3.73 MIL/uL (4.20-5.40); RED CELL DISTRIBUTION WIDTH 25.7 % (11.6-13.7); WHITE BLOOD COUNT (AUTO) 8.9 K/uL (4.8-10.8)
[2018-05-28 07:08] LABS: ALBUMIN 1.9 g/dL (3.4-5.0); ANION GAP 11.2 (8-16); CARBON DIOXIDE 28.6 mmol/L (21-32); CREATININE 0.7 mg/dL (0.6-1.3); POTASSIUM 3.8 mmol/L (3.5-5.1); TOTAL BILIRUBIN 0.5 mg/dL (0.0-1.0)
--- NOTE | 2018-05-28 07:09 | NUR ---
ENDORSED PT CARE TO DAY SHIFT NURSE SANTINO FOR CONTINUITY OF CARE.
--- NOTE | 2018-05-28 07:30 | NUR ---
RECEIVED PT ON BED AAOX4. NO SOB NOTED. NO C/O PAIN AT THIS TIME. IV TO RT HAND PATENT AND INTACT. CHEST, DIMINISHED AIR ENTRY TO THE BASES, OTHERWISE CLEAR. ABDOMEN SOFT, BOWEL SOUNDS PRESENT. 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 SMALL AMOUNTS OF VAGINAL BLEEDING, NO CLOTS NOTED PER PT. INSTRUCTED PT TO CALL FOR ASSISTANCE, CALL LIGHT WITHIN REACH, PT VERBALIZED UNDERSTANDING.
[2018-05-28 08:00] VITALS: BP 108/68
--- NOTE | 2018-05-28 10:24 | NUR ---
CALLED [facility] AND LEFT MESSAGE WITH TRANSFER CENTER TO CALL ME ABOUT TRANSFER. I CALLED JANET FROM [facility] ABOUT THIS PATIENT. SHE SAID SHE WOULD SPEAK WITH DR. HUBER, PATIENT MAY HAVE TO GO TO [place] INSTEAD. SHE ASKED [facility] TO FAX INFORMATION TO [facility] AT [phone], WHICH I DID.
[2018-05-28 12:00] VITALS: BP 99/68
--- NOTE | 2018-05-28 12:17 | NUR ---
SPOKE WITH KRISTEN FROM [facility] THIS AM. SHE SAID PER NOTES SHE HAD, THEIR PHYSICIAN WAS WAITING FOR US FROM [facility]. I CALLED JANET FROM [facility] AND SHE SAID SHE COULD FAX THE IMAGING RESULTS. I RECEIVED THE CT ABD AND PELVIS AND GB AND RIGHT UPPER QUADRANT US FROM [facility] FROM JANET. I CALLED KRISTEN AT [facility] AND TOLD HER WHAT I HAD AND I SAID I WOULD FAX THOSE TO HER. SHE SAID TO FAX TO [phone]. SHE ASKED IF I COULD GET FURTHER RECORDS FROM [facility].
--- NOTE | 2018-05-28 12:55 | NUR ---
RECEIVED A CALL FROM KENDALL FROM [facility]. THEY ARE ACCEPTED THE PATIENT. SHE WILL GO TO [address] PATY URIAS. CALL REPORT TO [phone]. I SPOKE WITH JIMMY AT [facility] , [phone] AND INFORMED HER. THE AUTH FOR [facility] IS [id number]. I CALLED KENDALL AT [facility] AND INFORMED HER. THE AUTH FOR TRANSPORT, [facility], IS [id number]. SET UP [facility] ALS TRANSPORT FOR 2P.M. I CALLED DR. HUBER AND INFORMED HIM THAT PATIENT WAS GOING TO [facility]. I CALLED KRISTEN AT [facility] AND INFORMED HER THAT PATIENT WAS ACCEPTED AT ANOTHER FACILITY. I CALLED DRU ESTRADA AND INFORMED HER.
--- NOTE | 2018-05-28 13:00 | NUR ---
REPORT GIVEN TO CARLOS-BAGGING SALVAGER NURSE AT [facility].
--- NOTE | 2018-05-28 14:30 | NUR ---
PT AGREEABLE TO TRANSFER TO A HIGHER OF CARE ([facility]). DISCHARGE INSTRUCTIONS GIVEN TO PT WHICH VERBALIZED FULL UNDERSTANDING OF THE REASON FOR TRANSFER.
--- NOTE | 2018-05-28 14:40 | NUR ---
PT WHEELED TO THE THE PARKING LOT BY [facility] IN STABLE CONDITION. PRESENT IV TO LEFT HAND SALINE LOCKED. NO SOB NOTED. NO C/O PAIN AT THIS TIME.
[2018-05-29 06:30] LABS: CHLAMYDIA TRACHOMATIS AMP DNA Negative (Negative)
== END 2018-05-28 14:40 | disposition short-term general hospital (02) | DRG 663 ==
LOC: MED 08:33 → MTU 12:06
PROVIDERS: ADMIT Hospitalist; ATTEND Hospitalist
PROC: 30233N1 Transfusion of Nonautologous Red Blood Cells into Peripheral Vein, Percutaneous Approach (ICD-10-PCS; principal; 2018-05-24)
PROC: BT141ZZ Fluoroscopy of Kidneys, Ureters and Bladder using Low Osmolar Contrast (ICD-10-PCS; 2018-05-25)
PROC: 3E02340 Introduction of Influenza Vaccine into Muscle, Percutaneous Approach (ICD-10-PCS; 2018-05-25)
DX: D62 Acute posthemorrhagic anemia (principal); E43 Unspecified severe protein-calorie malnutrition; N13.30 Unspecified hydronephrosis; E11.9 Type 2 diabetes mellitus without complications; E87.6 Hypokalemia; R19.00 Intra-abdominal and pelvic swelling, mass and lump, unspecified site; Z90.3 Acquired absence of stomach [part of]; Z90.49 Acquired absence of other specified parts of digestive tract; N73.9 Female pelvic inflammatory disease, unspecified; Z23 Encounter for immunization; Z68.23 Body mass index [BMI] 23.0-23.9, adult
CPT/HCPCS: 36415; 74400; 76856; 80053; 81001; 81003; 81025; 82378; 83540; 83605; 83690; 83735; 84100; 84702; 85025; 85045; 85610; 85651; 85730; 86140; 86592; 86886; 86900; 86901; 86920; 87040; 87081; 87086; 87491; 90658; 93005; 96365; 96366; 96368; 96375; 99285; J0696; J1200; J1940; J1956; J2270; J2405; J3475; J3480; J3490; J7030; J7060; J7120; P9016; Q0092; Q9967

== ENCOUNTER 2020-05-08 16:25 | Inpatient (IN) | payer MEDICAID, SELFPAY ==
[~2020-05-08] VITALS: Ht 167.6 cm; Wt 57.2 kg
[2020-05-08 16:31] VITALS: BP 131/87
--- NOTE | 2020-05-08 17:05 | NUR ---
dr fernandez at bedside evaluating pt.
[2020-05-08] MEDS ORDERED: IBUPROFEN 600 MG TAB PO ONE (17:10)
--- NOTE | 2020-05-08 17:15 | NUR ---
PELVIC/SUPRAPUBIC PAIN X 1 MONTH, INTERMITTENT NAUSEA, WEIGHT LOSS PT STATES THESE S/S OCCURED 2 YEARS AGO AND SHE WAS DIAGNOSED WITH ANEMIA AND OVARIAN CYST ,PT AOX4 , AFIBRILE , AMBULATORY WITH STEADY GAIT ,PINK PALPEBRAL CONJUNCTIVA , ANICTERIC SCLERA , SCE , FLAT SOFT ABDOMEN. OTHER PMH- PANCREATITIS DUE TO HIGH TRIGLYCERIDES
[2020-05-08 17:59] LABS: BASOPHILS % (AUTO) 1.3 % (0.0-2.0); LYMPHOCYTES # (AUTO) 0.5 K/uL (2.5-16.5); LYMPHOCYTES % (AUTO) 23.4 % (20.5-51.1); MEAN CORPUSCULAR HEMOGLOBIN 17 pg (27-31); MEAN CORPUSCULAR HGB CONC 28 g/dL (33-37); MEAN CORPUSCULAR VOLUME 62.6 fL (80-94); MONOCYTES # (AUTO) 0.2 K/uL (0.8-1.0); MONOCYTES % (AUTO) 8.6 % (1.7-9.3); NEUTROPHILS # (AUTO) 1.4 K/uL (1.8-7.7); NEUTROPHILS % (AUTO) 64.7 % (42.2-75.2); PLATELET COUNT (AUTO) 137 K/uL (140-450); RED BLOOD CELL COUNT(AUTO) 2.97 MIL/uL (4.20-5.40); RED CELL DISTRIBUTION WIDTH 21.4 % (11.6-13.7); WHITE BLOOD COUNT (AUTO) 2.2 K/uL (4.8-10.8)
[2020-05-08 18:02] LABS: HEMATOCRIT 18.6 % (36-48); HEMOGLOBIN 5.1 g/dL (12.0-16.0)
[2020-05-08 18:06] LABS: APPEARANCE,URINE SL CLOUDY (CLEAR); BILIRUBIN,URINE NEGATIVE (NEGATIVE); BLOOD, URINE NEGATIVE (NEGATIVE); COLOR,URINE YELLOW (YELLOW); LEUKOCYTE ESTERASE ,URINE 1+ (NEGATIVE); NITRITE, URINE POSITIVE (NEGATIVE); UGLUCOSE NEGATIVE (NEGATIVE)
[2020-05-08 18:08] LABS: ANION GAP 11.5 (8-16); CARBON DIOXIDE 26.8 mmol/L (21-32); CREATININE 0.7 mg/dL (0.6-1.3); POTASSIUM 4.3 mmol/L (3.5-5.1)
[2020-05-08 18:29] LABS: RBC,URINE 0-5 /HPF (0-5)
--- NOTE | 2020-05-08 18:56 | NUR ---
covid reva test done and brought to lab.
--- NOTE | 2020-05-08 18:59 | NUR ---
CONSENT FOR BLOOD SIGNED BY PATIENT AND DR. RANDOLPH AND PLACED IN CHART.
[2020-05-08] MEDS ORDERED: LORazepam 2 MG/ML VIAL IM/IVP PRN (19:00)
[2020-05-08] MEDS ORDERED: HYDROcodone/APAP 5/325 MG 1 TAB TAB PO PRN (19:00)
[2020-05-08] MEDS ORDERED: ACETAMINOPHEN 325 MG TAB PO PRN (19:00)
[2020-05-08] MEDS ORDERED: DOCUSATE SODIUM 100 MG GELCAP PO PRN (19:00)
[2020-05-08] MEDS ORDERED: ONDANSETRON 4 MG/2 ML VIAL IM/IVP PRN (19:00)
--- NOTE | 2020-05-08 19:13 | NUR ---
REPORT RECEIVED FROM SIMA ESTRADA FOR CONTINUITY OF CARE
--- NOTE | 2020-05-08 19:14 | NUR ---
gave report to padmini cobos comfortable in bed with stable vs , side rail up x 1 and lock.
[2020-05-08] MEDS ORDERED: HYDROcodone/APAP 5/325 MG 1 TAB TAB PO ONE (19:35)
[2020-05-08 19:38] LABS: MAGNESIUM 1.7 mg/dL (1.8-2.4); PHOSPHORUS 3.8 mg/dL (2.5-4.9)
[2020-05-08 19:46] LABS: PROTHROMBIN TIME 9.2 secs (10.8-13.4)
[2020-05-08 20:00] VITALS: BP 126/76
--- NOTE | 2020-05-08 20:00 | NUR ---
PT ASKING FOR SOMETHING TO EAT, PER ERMD OKAY TO GIVE. CRACKERS AND JUICE PROVIDED.
--- NOTE | 2020-05-08 20:15 | NUR ---
Consent signed per DR RANDOLPH agreeing to administration of blood. Blood has been type and crossmatched. Blood sent from blood bank. Information on unit of blood checked against patient wristband at bedside by two nurses. All information matches. Patient or responsible libertarian informed of potential complications associated with blood transfusion. Informed of possible transfusion reaction symptoms. Aware of need to notify nurse at once of itching, shortness of breath, flushing, feeling of impending doom, or other symptoms not previously present. Vital signs taken within 5 minutes prior to initiation of transfusion. RN will remain with patient for first 15 minutes of transfusion at which time vital signs will be re-assessed.
--- NOTE | 2020-05-08 20:57 | NUR ---
Patient will be admitted to care of DR HINKLE. Admited to TELEMETRY. Will go to room 105 A. Belongings list completed. Report to MARIE ESTRADA.
--- NOTE | 2020-05-08 20:57 | NUR ---
RECEIVED PT FROM THE ED, VIA WHEELCHAIR, PT HAS PELVIC PAIN, WITH LEFT AC G 20, PATENT AND INTACT, PT WITH BLOOD INFUSING, PT TOLERATING PROCEDURE, 350 MG BAG STILL FULL. WILL CONTINUE TO MONITOR PT, PT ON BEDREST FOR NOW DUE TO BLOOD TRANSFUSION, BUT ABLE TO GET UP AND AMBULATE. PLACED ON LOW BED, CALL LIGHT WITHIN REACH. POC DISCUSSED .MRSA SWAB DONE
--- NOTE | 2020-05-08 20:58 | NUR ---
WITH 1 UNIT OF RBC ONGOING BLOOD TRANSFUSION, PT TOLERATED THE PROCEDURE. BAG ALMOST FULL WHEN RECEIVED.
[2020-05-08] MEDS: MORPHINE SULFATE 2 MG/ML SYR IVP PRN (22:20)
--- NOTE | 2020-05-08 23:05 | NUR ---
MG LEVEL 1. 7 LOW, INFORMED DR. JOHNSON, AWAITING FOR ORDERS
--- NOTE | 2020-05-08 23:09 | NUR ---
DR. JOHNSON REPLIED AND SAID HE PUT THE ORDER IN FOR THE LOW MG LEVEL
[2020-05-08] MEDS ORDERED: MAGNESIUM OXIDE 400 MG TAB PO PRN ×2 (23:10→23:50)
[2020-05-08] MEDS: SODIUM FERRIC GLUCONATE 125 MG in NACL 0.9% 100 ML IV SCH (23:15)
--- NOTE | 2020-05-08 23:45 | NUR ---
TALKED TO DR. JOHNSON REGARDING HIS ORDER, MAG OXIDE = CHANGED THE ORDER TO DAILY PRN. AND ANOTHER ORDER VERIFIED HOW MANY DOSES FOR THE FERLECCIT, CHANGED THE ORDER FOR 4 DOSES, DR. JOHNSON AWARE
[2020-05-09] VITALS: BP 114/65
--- NOTE | 2020-05-09 | NUR ---
PT BLOOD 1 UNIT THAT WAS STARTED AT THE ED AT 2014, COMPLETED NO ADVERSE EFFECTS, WILL CONTINUE TO MONITOR. VITAL SIGNS MONITORED.
--- NOTE | 2020-05-09 | NUR ---
PER PHARMACIST NO BAG AVAILABLE TONIGHT FOR THE FELECCOT AND THAT THEY WILL BE ABLE TO DELIVER IT IN THE AM Addendum: 05/09/20 at 0644 by Concepcion Pinto RN JASVIR
[2020-05-09] MEDS: NACL 0.9% 1,000 ML IV SCH ×2 (00:17→18:59)
--- NOTE | 2020-05-09 02:00 | NUR ---
PT COMFORTABLE DENIES ANY PAIN, WILL CONTINUE TO MONITOR
[2020-05-09 04:00] VITALS: BP 115/66
--- NOTE | 2020-05-09 04:12 | NUR ---
PT ABLE TO GET UP ON BED, STEADY GAIT WILL CONTINUE TO MONITOR
[2020-05-09 06:00] LABS: HEMATOCRIT 21.5 % (36-48); MEAN CORPUSCULAR HEMOGLOBIN 19 pg (27-31); MEAN CORPUSCULAR HGB CONC 29 g/dL (33-37); MEAN CORPUSCULAR VOLUME 66.5 fL (80-94); PLATELET COUNT (AUTO) 135 K/uL (140-450); RED BLOOD CELL COUNT(AUTO) 3.23 MIL/uL (4.20-5.40); WHITE BLOOD COUNT (AUTO) 2.6 K/uL (4.8-10.8)
[2020-05-09 06:15] LABS: CREATININE 0.6 mg/dL (0.6-1.3)
[2020-05-09 06:53] LABS: HEMOGLOBIN 6.2 g/dL (12.0-16.0)
--- NOTE | 2020-05-09 07:00 | NUR ---
RECEIVED RESULT OF HGB 6.2; HCT 21.5 FROM [facility]; INFORMED DR. LANTIGUA, AWAITING ORDERS. ENDORSED TO THE NATALIE PRADO THE CRITICAL RESULTS AND THAT WE ARE WAITING FOR DR. JOHNSON'S ORDER
--- NOTE | 2020-05-09 07:15 | NUR ---
RECEIVED REPORT FROM NIGHT NURSE FOR CONTINUITY OF CARE, PT IS STABLE, PT RESTING IN BED, NO SIGNS OF DISTRESS NOTED, RESPIRATIONS ARE EVEN AND UNLABORED ON ROOM AIR, PT HAS LEFT AC 20G INFUSING NORMAL SALINE AT 20ML/H, INTRODUCE SELF, UPDATE WHITEBOARD, BED IN LOW POSITION, SAFETY MEASURES IN PLACE, CALL LIGHT WITHIN REACH, WILL CONTINUE TO MONITOR.
--- NOTE | 2020-05-09 07:43 | NUR ---
PATIENT HAS BEEN SCREENED AND CATEGORIZED MODERATE NUTRITION RISK. PATIENT WILL BE SEEN WITHIN 3-5 DAYS OF ADMISSION. 05/11/20 05/13/[address]
[2020-05-09 07:46] LABS: EOSINOPHILS % (MANUAL) 2 % (0-4); LYMPHOCYTES % (MANUAL) 38 % (20-46); MONOCYTES % (MANUAL) 10 % (5-12)
[2020-05-09 08:00] VITALS: BP 106/62
--- NOTE | 2020-05-09 09:25 | NUR ---
RECEIVED TORB FROM DR JOHNSON FOR 1 UNIT OF PRBC, WILL INPUT ORDER AND CARRY IT OUT.
--- NOTE | 2020-05-09 09:33 | NUR ---
PT SLEEPING IN BED, NO SIGNS OF DISTRESS NOTED, PT IS STABLE, CALL LIGHT WITHIN REACH, WILL CONTINUE TO MONITOR.
[2020-05-09] MEDS: MORPHINE SULFATE 2 MG/ML SYR IVP PRN ×3 (10:32→19:40)
--- NOTE | 2020-05-09 10:45 | NUR ---
ADMINISTERED MORPHINE FOR PELVIC PAIN OF 8/10 DULL PAIN, MEDICATION EDUCATION PROVIDED, PT VERBALIZED UNDERSTANDING, PT TOLERATED WELL, NEW IV SITE ON RIGHT FOREARM 22G, PT IS STABLE, CALL LIGHT WITHIN REACH, WILL CONTINUE TO MONITOR.
--- NOTE | 2020-05-09 11:05 | NUR ---
STARTED BLOOD TRANSFUSION, TRANSFUSION EDUCATION PROVIDED, VITALS OBTAINED, PT TOLERATING WELL, PT IS STABLE, WILL CONTINUE TO MONITOR, CALL LIGHT WITHIN REACH.
[2020-05-09 12:00] VITALS: BP 119/75
--- NOTE | 2020-05-09 13:40 | NUR ---
BLOOD TRANSFUSION FINISHED, PT IS STABLE, NO SIGNS OF DISTRESS NOTED, RESPIRATIONS ARE EVEN AND UNLABORED ON ROOM AIR, CALL LIGHT WITHIN REACH, WILL CONTINUE TO MONITOR.
--- NOTE | 2020-05-09 15:37 | NUR ---
ADMINISTERED MORPHINE FOR PELVIC PAIN 03/09 DULL, ACHY PAIN, MEDICATION EDUCATION PROVIDED, PT VERBALIZED UNDERSTANDING, PT TOLERATED WELL, PT IS STABLE, CALL LIGHT WITHIN REACH, WILL CONTINUE TO MONITOR.
[2020-05-09 16:00] VITALS: BP 139/61
--- NOTE | 2020-05-09 16:31 | NUR ---
ADMINISTERED SCHEDULED MEDICATION, MEDICATION EDUCATION PROVIDED, PT VERBALIZED UNDERSTANDING, PT TOLERATED WELL, PT IS STABLE, NO SIGNS OF DISTRESS NOTED, CALL LIGHT WITHIN REACH, WILL CONTINUE TO MONITOR.
[2020-05-09 18:05] LABS: BARBITURATE, URINE NEGATIVE ng/ml (NEG <=200); BENZODIAZEPINE, URINE NEGATIVE ng/mL (NEG <=200); CANNABINOID, URINE NEGATIVE ng/mL (NEG <=50); COCAINE, URINE NEGATIVE ng/mL (NEG <=300); OPIATE, URINE NEGATIVE ng/mL (NEG <=2000); PHENCYCLIDINE SCREEN,URINE NEGATIVE ng/mL (NEG <=25)
--- NOTE | 2020-05-09 19:20 | NUR ---
RECEIVED PATIENT IN STABLE CONDITION FROM AM SHIFT NURSE FOR CONTINUITY OF CARE. TELE PATIENT. AAOX4. RESPIRATIONS EVEN, UNLABORED. PATIENT C/O LOWER ABDOMINAL PAIN 02/06. WILL MEDICATE ORDERED. NO S/S ACUTE DISTRESS. SKIN WARM, DRY TO TOUCH. IV SITE TO RIGHT FOREARM PATENT/INTACT, INFUSING FLUIDS WELL. ABDOMEN SOFT, NONTENDER. BOWEL SOUNDS ACTIVE X4 QUADRANTS. PATIENT CONTINENT OF B/B. PLAN OF CARE DISCUSSED WITH PATIENT. CALL LIGHT WITHIN REACH.
--- NOTE | 2020-05-09 19:20 | NUR ---
TEXT DR GAO, WILL SEE PT IN AM, WANTS PT NPO FOR POSSIBLE SURGERY TOMORROW.
--- NOTE | 2020-05-09 19:20 | NUR ---
ENDORSE PT TO NIGHT NURSE FOR CONTINUITY OF CARE, PT IS STABLE
[2020-05-09 20:00] VITALS: BP 111/71
[2020-05-09] MEDS: traZODone 50 MG TAB PO SCH (20:39)
--- NOTE | 2020-05-09 21:30 | NUR ---
PATIENT IS AWAKE AND TALKING TO FAMILY ON CELL PHONE. NO S/S ACUTE DISTRESS. PAIN LEVEL IS TOLERABLE AT THIS TIME. CALL LIGHT WITHIN REACH.
[2020-05-09] MEDS: SODIUM FERRIC GLUCONATE 125 MG in NACL 0.9% 100 ML IV SCH (22:15)
--- NOTE | 2020-05-09 23:17 | NUR ---
PATIENT ASLEEP. NO S/S ACUTE DISTRESS. CALL LIGHT WITHIN REACH.
[2020-05-10] VITALS: BP 92/55
--- NOTE | 2020-05-10 01:04 | NUR ---
PATIENT IS ASLEEP AND IN STABLE CONDITION. NO S/S ACUTE DISTRESS. CALL LIGHT WITHIN REACH.
[2020-05-10] MEDS: MORPHINE SULFATE 2 MG/ML SYR IVP PRN ×4 (01:58→20:51)
--- NOTE | 2020-05-10 03:04 | NUR ---
MADE ROUNDS. PATIENT IS ASLEEP AND IN STABLE CONDITION. NO S/S ACUTE DISTRESS. CALL LIGHT WITHIN REACH.
[2020-05-10 04:00] VITALS: BP 94/55
--- NOTE | 2020-05-10 05:11 | NUR ---
PATIENT RESTING COMFORTABLY IN BED. VERBALIZED THAT SHE SLEPT WELL. NO C/O PAIN. NO S/S ACUTE DISTRESS. CALL LIGHT WITHIN REACH.
--- NOTE | 2020-05-10 07:13 | NUR ---
ENDORSED PATIENT IN STABLE CONDITION TO AM SHIFT NURSE FOR CONTINUITY OF CARE.
--- NOTE | 2020-05-10 07:14 | NUR ---
RECEIVED ENDORSEMENT FROM PHYSICAL SECURITY ENGINEER ASLEEP ON BED, BREATHING SPONTANEOUSLY AT ROOM AIR, NOT IN DISTRESS NOTED, SKIN WARM TO TOUCH AND PALE. WITH ONGOING IV FLUID 0.9 % NS AT 20ML /HOUR INFUSING AT RT FOREARM, G22 IV CANNULA NOTED. NPO SINCE POST MIDNIGHT ORDERED. SAFETY MEASURES IN PLACE AND CONTINUE MONITOR.
[2020-05-10 07:16] LABS: BASOPHILS % (AUTO) 1.3 % (0.0-2.0); EOSINOPHILS # (AUTO) 0.1 K/uL (0-0.4); HEMATOCRIT 25.8 % (36-48); HEMOGLOBIN 7.8 g/dL (12.0-16.0); LYMPHOCYTES # (AUTO) 0.7 K/uL (2.5-16.5); LYMPHOCYTES % (AUTO) 24.2 % (20.5-51.1); MEAN CORPUSCULAR HEMOGLOBIN 21 pg (27-31); MEAN CORPUSCULAR HGB CONC 30 g/dL (33-37); MEAN CORPUSCULAR VOLUME 69.1 fL (80-94); MONOCYTES # (AUTO) 0.2 K/uL (0.8-1.0); MONOCYTES % (AUTO) 7.9 % (1.7-9.3); NEUTROPHILS # (AUTO) 1.8 K/uL (1.8-7.7); PLATELET COUNT (AUTO) 131 K/uL (140-450); RED BLOOD CELL COUNT(AUTO) 3.74 MIL/uL (4.20-5.40); RED CELL DISTRIBUTION WIDTH 26.5 % (11.6-13.7); WHITE BLOOD COUNT (AUTO) 2.9 K/uL (4.8-10.8)
[2020-05-10 07:18] LABS: ANION GAP 11.7 (8-16); CARBON DIOXIDE 26.2 mmol/L (21-32); CREATININE 0.6 mg/dL (0.6-1.3); POTASSIUM 3.9 mmol/L (3.5-5.1)
[2020-05-10 07:48] LABS: EOSINOPHILS % (AUTO) 4.7 % (0.0-4.0); NEUTROPHILS % (AUTO) 61.9 % (42.2-75.2)
[2020-05-10 08:00] VITALS: BP 111/53
[2020-05-10] MEDS: ASCORBIC ACID 500 MG TAB PO SCH (08:38)
--- NOTE | 2020-05-10 09:13 | NUR ---
COMPLAINED OF PELVIC PAIN 02/06, MORPHINE 2 MG IV ORDERED PRN GIVEN
--- NOTE | 2020-05-10 11:09 | NUR ---
SEEN AND EXAMINED BY DR. GAO, NO SURGERY TODAY.
[2020-05-10 12:00] VITALS: BP 107/65
--- NOTE | 2020-05-10 12:41 | NUR ---
NO COMPLAINED OF PAIN, VITAL SIGNS TAKEN AND RECORDED, STABLE. REGULAR DIET ORDERED.
--- NOTE | 2020-05-10 13:25 | NUR ---
REGULAR DIET SERVED, ABLE TO CONSUMED 75% OF FOOD
[2020-05-10 16:00] VITALS: BP 101/64
--- NOTE | 2020-05-10 16:04 | NUR ---
COMPLAINED OF PELVIC PAIN 02/06, MORPHINE 2MG IV ORDERED PRN GIVEN. KEPT COMFORTABLE TO BED.
--- NOTE | 2020-05-10 18:47 | NUR ---
AMBULATORY TO TOILET, NO COMPLAINED OF PAIN. VOIDED FREELY CLAIMED
[2020-05-10] MEDS: NACL 0.9% 1,000 ML IV SCH (19:03)
--- NOTE | 2020-05-10 19:15 | NUR ---
RECEIVED PT IN STABLE CONDITION FROM AM NURSE.AWAKE,ALERT AND ORIENTED X 4. TELE PT. AMBULATORY, WITH NO C/O ANY DISCOMFORT NOR PAIN NOTED AT HIS TIME. IVF INFUSING WELL ON THE RT FAg#22 .CLEAR AND PATENT. PLAN OF CARE DISCUSSED AND VERBALIZED UNDERSTANDING. BED ON LOW POSITION. SIDE RAILS UP X2. CALL LIGHT PLACED WITHIN EASY REACH. WILL CONTINUE TO MONITOR.
--- NOTE | 2020-05-10 19:19 | NUR ---
ENDORSED TO INTERNAL REVENUE AGENT IN STABLE CONDITION FOR CONTINUITY OF CARE.
[2020-05-10 19:54] VITALS: BP 107/65
[2020-05-10] MEDS: traZODone 50 MG TAB PO SCH (20:51)
--- NOTE | 2020-05-10 21:50 | NUR ---
MADE ROUNDS. PT IS ASLEEP. NO MORE S/S OF ANY PAIN NOTED.
--- NOTE | 2020-05-10 22:55 | NUR ---
CHECKED ON PT AWAKE. . NO C/O ANY DISCOMFORT NOTED. WILL CONTINUE TO MONITOR.
[2020-05-10] MEDS: SODIUM FERRIC GLUCONATE 125 MG in NACL 0.9% 100 ML IV SCH (22:56)
[2020-05-11] VITALS: BP 105/52
--- NOTE | 2020-05-11 00:04 | NUR ---
MADE ROUNDS. PT IS ASLEEP. NO S/S OF ANY DISCOMFORT NOR PAIN NOTED.
--- NOTE | 2020-05-11 02:00 | NUR ---
MADE ROUNDS. PT ASLEEP. NO S/SOF ANY PAIN NOTED.
[2020-05-11 03:45] VITALS: BP 105/60
--- NOTE | 2020-05-11 04:00 | NUR ---
CHECKED ON PT. VITAL SIGNS STABLE. NO /CO ANY PAIN NOTED.
[2020-05-11] MEDS: MORPHINE SULFATE 2 MG/ML SYR IVP PRN ×2 (06:39→11:20)
--- NOTE | 2020-05-11 06:39 | NUR ---
C/O ABDOMINAL PAIN. MEDICATED ORDERED.
[2020-05-11] MEDS ORDERED: FERR325E14 PO (07:23)
[2020-05-11] MEDS ORDERED: DOCU-299 PO (07:23)
[2020-05-11] MEDS ORDERED: VITC500 PO (07:23)
[2020-05-11] MEDS ORDERED: NITR100C7 PO (07:23)
[2020-05-11] MEDS ORDERED: NAPR-54 PO (07:24)
--- NOTE | 2020-05-11 07:39 | NUR ---
ENDORSED PT IN STABLE CONDITION TO AM NURSE.
--- NOTE | 2020-05-11 07:42 | NUR ---
RECEIVED BEDSIDE REPORT FROM DIRECTOR OF RECRUITMENT NURSE RICHARD FOR CONTINUITY OF CARE. PATIENT IS ASLEEP ON BED AND AROUSABLE TO VOICE. RESPIRATION EVEN AND UNLABORED ON RA. NO SIGNS OF ACUTE DISTRESS NOTED. IV ON RFA 22G, CLEAN AND INTACT, INFUSING NS PER MD ORDER. SKIN CLEAN AND DRY. PATIENT IS CONTINENT AND ABLE TO USE BATHROOM. BILINGUAL CUSTOMER SERVICE IN PLACE. SAFETY MEASURES IN PLACE. BED IN LOW POSITION AND CALL LIGHT WITHIN REACH.
[2020-05-11 08:00] VITALS: BP 100/58
[2020-05-11] MEDS: ASCORBIC ACID 500 MG TAB PO SCH (08:25)
--- NOTE | 2020-05-11 08:26 | NUR ---
DISCUSSED THE PLAN OF CARE WITH PATIENT, PATIENT IS EATING BREAKFAST ON BED AT THIS TIME. PATIENT ACKNOWLEDGED AND AWARE THAT SHE WILL BE GOING HOME TODAY. PER PATIENT, HER IS ABLE TO PICK HER UP IN THE AFTERNOON. ADMINISTERED SCHEDULED AM MED, MED EDUCATION PROVIDED AND PATIENT VERBALIZED UNDERSTANDING. PATIENT DENIED OF PAIN, SOB AND ANY DISCOMFORT AT THIS TIME. NO SIGNS OF ACUTE DISTRESS NOTED. INSTRUCTED PATIENT TO USE THE CALL LIGHT FOR ANY ASSISTANCE AND PATIENT AWARE. SAFETY MEASURES IN PLACE.
--- NOTE | 2020-05-11 08:29 | NUR ---
DR MACKEY IS ROUNDING ON PATIENT AT BEDSIDE.
--- NOTE | 2020-05-11 08:35 | NUR ---
SPOKE WITH DR MACKEY ABOUT THE DOSE OF ROCEPHIN FOR 1600 TODAY, DR MACKEY WAS AWARE AND SAID IT'S OK TO GIVE IT BEFORE DC.
[2020-05-11 08:38] LABS: BASOPHILS % (AUTO) 1.3 % (0.0-2.0); EOSINOPHILS # (AUTO) 0.1 K/uL (0-0.4); EOSINOPHILS % (AUTO) 4.7 % (0.0-4.0); HEMATOCRIT 27.9 % (36-48); HEMOGLOBIN 8.2 g/dL (12.0-16.0); LYMPHOCYTES # (AUTO) 0.6 K/uL (2.5-16.5); LYMPHOCYTES % (AUTO) 19.4 % (20.5-51.1); MEAN CORPUSCULAR HEMOGLOBIN 21 pg (27-31); MEAN CORPUSCULAR HGB CONC 30 g/dL (33-37); MEAN CORPUSCULAR VOLUME 70.9 fL (80-94); MONOCYTES # (AUTO) 0.3 K/uL (0.8-1.0); MONOCYTES % (AUTO) 9.5 % (1.7-9.3); NEUTROPHILS % (AUTO) 65.1 % (42.2-75.2); PLATELET COUNT (AUTO) 144 K/uL (140-450); RED BLOOD CELL COUNT(AUTO) 3.93 MIL/uL (4.20-5.40); WHITE BLOOD COUNT (AUTO) 3.1 K/uL (4.8-10.8)
--- NOTE | 2020-05-11 10:17 | NUR ---
ATTENDED TO CALL LIGHT, PATIENT COMPLAINED SHE IS FEELING ANXIOUS AND SHAKING. ASSISTED PATIENT TO POSITION COMFORTABLY ON BED AND PROMOTE QUIET ENVIRONMENT. PATIENT SAID, " NO, IT DOESN'T HELP. I NEED MEDICATION." MEDICATED WITH PRN ATIVAN 0.5 MG VIA IVP, MED EDUCATION PROVIDED AND PATIENT SAID OK. PATIENT IS RESTING ON BED AND TALKING TO BED B PATIENT AT THIS TIME. FOUNDRY WORKER APPRENTICE IN PLACE. SAFETY MEASURES IN PLACE.
--- NOTE | 2020-05-11 10:26 | NUR ---
DC PLANNIN YRS OLD FEMALE PATIENT WAS ADMITTED FROM HOME WITH A DX OF SEVER ANEMIA ,LEFT ADNEXAL MASS. PT HAS A HX OF ANEMIA DYSMENORRHEA , PANCREATITIS AND HYPER TRIGLYCERIDEMIA. PELVIC ULTRASOUND SHOWED LEFT ADNEXAL MASS . CONSULTED WITH CLIENT SUCCESS MANAGER DR GAO. STARTED IVF, IV ABX ROCEPHIN , AND IV FERRLECIT. TRANSFUSE 2 UNITS PRBC H/H 8.2/27.9 . DC PLAN TO GO HOME WHEN STABLE AND F/U WITH CLIENT SUCCESS MANAGER CM TO FOLLOW.
--- NOTE | 2020-05-11 10:53 | NUR ---
SOCIAL WORK NOTE: Patient's Orientation Person Situation Place Time Information Provided By PATIENT Comments SW WAS NOT ABLE TO MEET PATIENT AT BEDSIDE. SW COMPLETED ASSESSMENT WITH PATIENT TELEPHONICALLY. [employer] Re[employer]ionship and Phone Number LINDA CAMARA [phone] Healthcare Power of Tack Picker No Does Patient Have a POLST No Identifying Problems No Social Work Triggers Is A Social Work Consult Needed No Mandate Report Filed No Explanation Of Identifying Problems PATIENT IS A 34-YEAR-OLD FEMALE ADMITTED FOR PELVIC PAIN. PATIENT HAS PMHX OF HYPERTRIGLYCERIDEMIA, ANEMIA, AND DYSMENORRHEA. PATIENT REPORTED NO HISTORY OF MENTAL HEALTH OR SUBSTANCE ABUSE. Admitted From Home Pre-Admission Level Of Functioning Status Independent/Ambulatory Prior Resources/Services Used In Last 12 Months No Prior Resources Used Prior DME No Prior DME Used Dialysis Comments PATIENT REPORTED NOT RECEIVING DIALYSIS. Living Situation Lives With Family House Patient Had Caregiver No Home Support No Caregiver Issues Financial Issues No Known Financial Issue Referral To The Financial Counselor Needed No Factors/Needs No D/C Needs Identified Explanation And Or Other Factors Affecting/Possible DC Needs PATIENT REPORTED THAT WOULD PICK PATIENT UP AT DISCHARGE. Pt/Rep Participated In Discharge Plan Yes Patient/Family Agress With Discharge Plan Yes Discharge Plan Comments TENTATIVE DISCHARGE PLAN IS FOR PATIENT TO RETURN HOME. DC Plan Status Initiated
--- NOTE | 2020-05-11 11:22 | NUR ---
ATTENDED TO CALL LIGHT, PATIENT COMPLAINED SHE HAS 8/10 PAIN ON HER ABDOMINAL AREA, REPOSITIONED PATIENT AND PROVIDED EXTRA PILLOW TO COMFORT, PER PATIENT, THE PAIN DID NOT GO AWAY. MEDICATED WITH PRN MORPHINE, MED EDUCATION PROVIDED AND PATIENT VERBALIZED UNDERSTANDING. PATIENT IS RESTING ON BED AT THIS TIME. INFORMED PATIENT THAT DISCHARGE DOCUMENT IS READY AND PATIENT WAS AWARE AND STATED, " I WILL HAVE MY TO PICK ME UP AFTER LUNCH." TELE MONITOR IN PLACE. SAFETY MEASURES IN PLACE. BED IN LOW POSITION AND CALL LIGHT WITHIN REACH.
[2020-05-11 12:00] VITALS: BP 105/60
--- NOTE | 2020-05-11 13:13 | NUR ---
ATTENDED TO CALL LIGHT, PER PATIENT, HER IS ON THE WAY TO PICK HER UP IN 30 MINS. ADMINISTERED ROCEPHIN PER MD ORDER, MED EDUCATION PROVIDED, PATIENT SAID OK. PATIENT IS CHANGING THIS TIME. NO SIGNS OF ACUTE DISTRESS NOTED. REMOVED TELE BOX AND RETURNED TO PLANT OPERATOR/SHIFT SUPERVISOR. SAFETY MEASURES IN PLACE. INSTRUCTED PATIENT TO USE THE CALL LIGHT WHEN HER ARRIVES.
--- NOTE | 2020-05-11 13:29 | NUR ---
DISCHARGE INSTRUCTION PROVIDED TO PATIENT AT BEDSIDE. EDUCATED PATIENT ON FOLLOW UP WITH DR GAO, REPEAT CBC TO MONITOR HGB, EDUCATED PATIENT ON DIAGNOSIS, MEDICATION REGIMEN, SIDE EFFECTS. ANSWERED ALL PATIENT'S QUESTIONS AND PATIENT WAS AWARE. PATIENT WAS AWARE THAT PRESCRIPTION SEND TO HER PREFERRED PHARMACY. REMOVED ARM BANDS, AND IV, CANNULA INTACT, AND NO BLEEDING ON IV SITE. PATIENT REFUSED FLU VACCINE AND VACCINE EDUCATION PROVIDED. DISCHARGE HARD COPY PROVIDED TO PATIENT. PATIENT CHANGED INTO HER OWN CLOTHES AND TOOK ALL HER BELONGINGS. ESCORTED PATIENT TO THE FRONT LOBBY.PATIENT IS GOING TO [facility] ACCOMPANIED BY HER . PATIENT IS IN STABLE CONDITION.
== END 2020-05-11 13:26 | disposition home or self-care (01) | DRG 463 ==
LOC: MED 16:25 → MTU 18:59
PROVIDERS: ADMIT Hospitalist; ATTEND Hospitalist
PROC: 30233N1 Transfusion of Nonautologous Red Blood Cells into Peripheral Vein, Percutaneous Approach (ICD-10-PCS; principal; 2020-05-08)
DX: N39.0 Urinary tract infection, site not specified (principal); N94.6 Dysmenorrhea, unspecified; B96.1 Klebsiella pneumoniae [K. pneumoniae] as the cause of diseases classified elsewhere; E83.42 Hypomagnesemia; D50.9 Iron deficiency anemia, unspecified; D72.819 Decreased white blood cell count, unspecified; R19.09 Other intra-abdominal and pelvic swelling, mass and lump; D72.829 Elevated white blood cell count, unspecified; Z83.3 Family history of diabetes mellitus; Z80.42 Family history of malignant neoplasm of prostate; Z20.828 Contact with and (suspected) exposure to other viral communicable diseases
CPT/HCPCS: 36415; 36430; 76830; 80048; 80305; 81001; 83036; 83540; 83690; 83735; 84100; 85025; 85045; 85610; 85730; 86886; 86900; 86901; 86920; 87081; 87086; 99285; J0696; J2060; J2270; J2916; J7030; J7060; P9016; Q0092

== ENCOUNTER 2021-04-07 18:14 | Inpatient (IN) | payer MEDICAID, SELFPAY ==
[~2021-04-07] VITALS: Ht 165.1 cm; Wt 59.4 kg
[~2021-04-07 18:14] MED LIST changes: +DOCU-299 PO; +FERR325E14 PO; +NAPR-54 PO; +NITR100C7 PO; -OXYC10TE14 PO; -PAX10 PO; -TRAM50TA1 PO; +VITC500 PO
[2021-04-07 18:58] VITALS: BP 105/73
[2021-04-07 20:17] LABS: BASOPHILS % (AUTO) 1.4 % (0.0-2.0); EOSINOPHILS # (AUTO) 0.2 K/uL (0-0.4); EOSINOPHILS % (AUTO) 8.1 % (0.0-4.0); LYMPHOCYTES # (AUTO) 0.4 K/uL (2.5-16.5); LYMPHOCYTES % (AUTO) 19.7 % (20.5-51.1); MEAN CORPUSCULAR HEMOGLOBIN 17 pg (27-31); MEAN CORPUSCULAR HGB CONC 26 g/dL (33-37); MEAN CORPUSCULAR VOLUME 63.1 fL (80-94); MONOCYTES # (AUTO) 0.2 K/uL (0.8-1.0); MONOCYTES % (AUTO) 8.6 % (1.7-9.3); NEUTROPHILS # (AUTO) 1.4 K/uL (1.8-7.7); NEUTROPHILS % (AUTO) 62.2 % (42.2-75.2); PLATELET COUNT (AUTO) 155 K/uL (140-450); RED BLOOD CELL COUNT(AUTO) 1.89 MIL/uL (4.20-5.40); RED CELL DISTRIBUTION WIDTH 22.1 % (11.6-13.7); WHITE BLOOD COUNT (AUTO) 2.3 K/uL (4.8-10.8)
[2021-04-07 20:25] LABS: HEMATOCRIT 11.9 % (36-48); HEMOGLOBIN 3.1 g/dL (12.0-16.0)
--- NOTE | 2021-04-07 20:35 | NUR ---
PT AMBULATED TO BED #12
[2021-04-07 20:47] LABS: ALBUMIN 2.9 g/dL (3.4-5.0); ANION GAP 10.7 (8-16); CARBON DIOXIDE 24.8 mmol/L (21-32); CREATININE 0.6 mg/dL (0.6-1.3); FREE T4 (FREE THYROXINE) 0.94 ng/dL (0.76-1.46); POTASSIUM 3.5 mmol/L (3.5-5.1); THYROID STIMULATING HORMONE 0.78 uIU/mL (0.34-3.74); TOTAL BILIRUBIN 0.3 mg/dL (0.0-1.0)
--- NOTE | 2021-04-07 20:55 | NUR ---
lab at bedside.
--- NOTE | 2021-04-07 21:00 | NUR ---
35YO WITH C/C OF ABNORMAL LABS. PT WENT TO SEE TO PRIMARY CARE, HGB LEVEL 3.7, INSTRUCTED TO COME TO ER. PT REPORTED FEELING WEAK AND TIRED. PT HAS BILAT SWELLING TO LE NONPITTING. PT HAS ABD PAIN 7/10 X1WK, SHARP AND FEELS BLOATED.SENSITIVE TO TOUCH. HX:PANCREATITIS, ILEOSTOMY, REMOVAL OF ILEOSTOMY, OVARIAN CYST, ANEMIA. ANXIETY RX: XANAX PRN NKA
[2021-04-07 21:24] LABS: PROTHROMBIN TIME 9.6 secs (10.8-13.4)
--- NOTE | 2021-04-07 21:40 | NUR ---
CONSENT FOR BLOOD TRANSFUSION AND CT ABD/PELVIS WITH CONTRAST OBTAINED.
--- NOTE | 2021-04-07 21:54 | NUR ---
PT TAKEN TO CT
[2021-04-07] MEDS ORDERED: DOCUSATE SODIUM 100 MG GELCAP PO PRN (23:20)
[2021-04-07] MEDS ORDERED: ZOLPIDEM 5 MG TAB PO PRN (23:20)
[2021-04-07] MEDS ORDERED: guaiFENesin DM 200/20 MG-10 ML 10 ML UDC PO PRN (23:20)
[2021-04-07] MEDS ORDERED: POTASSIUM CHLORIDE 10 MEQ TABER PO PRN (23:20)
[2021-04-07] MEDS ORDERED: ACETAMINOPHEN 325 MG TAB PO PRN (23:20)
[2021-04-07] MEDS: DEXT 5% /NACL 0.9% 1,000 ML IV SCH (23:20)
[2021-04-07] MEDS ORDERED: ONDANSETRON 4 MG/2 ML VIAL IM/IVP PRN (23:20)
--- NOTE | 2021-04-07 23:20 | NUR ---
1ST OF UNIT OF BLOOD STARTED.
[2021-04-07] MEDS: SODIUM FERRIC GLUCONATE 125 MG in NACL 0.9% 100 ML IV SCH (23:30)
--- NOTE | 2021-04-07 23:50 | NUR ---
PT'S TEMP SPIKED FROM 97.7 TO 99.6. PT DENIES SOB, ITCHING, PAIN AND DISCOMFORT. REMOVED EXTRA BLANKETS OFF PT. CHECKED PT'S BODY FOR HIVES, NONE PRESENT. TYLENOL GIVEN.
[2021-04-07 23:55] LABS: CHOL/HDL RATIO 3.4 (1-4.5); MAGNESIUM 1.9 mg/dL (1.8-2.4)
[2021-04-08] MEDS: ALPRAZolam 0.5 MG TAB PO PRN ×3 (00:18→21:19)
--- NOTE | 2021-04-08 00:45 | NUR ---
PROVIDED FOOD FOR PT PER REQUEST.
--- NOTE | 2021-04-08 00:50 | NUR ---
RECHECKED PT'S TEMP 98.9. PT REMAINS IN STABLE CONDITION.
--- NOTE | 2021-04-08 01:36 | NUR ---
FIRST UNIT COMPLETED. PT TOLERATED WELL. VSS, PT IN STABLE CONDITION.
--- NOTE | 2021-04-08 01:58 | NUR ---
PT HAD EPISODE OF N/V. ZOFRAN GIVEN.
--- NOTE | 2021-04-08 02:00 | NUR ---
2ND UNIT OF BLOOD STARTED.
--- NOTE | 2021-04-08 02:00 | NUR ---
PT IS UP IN BED AWAKE AND ALERT. VSS. PT IN STABLE CONDITION.
[2021-04-08] MEDS ORDERED: SODIUM FERRIC GLUCONATE 12.5 MG/ML AMP IV ONE (02:09)
--- NOTE | 2021-04-08 04:14 | NUR ---
PT IS RESTING, OPENS EYES TO SOUND. EQUAL RISE AND FALL OF CHEST WALL. VSS. PT IN STABLE CONDITION. BLOOD TRANSFUSING.
--- NOTE | 2021-04-08 05:04 | NUR ---
2ND UNIT OF BLOOD COMPLETED. NADR. PT IS IN STABLE CONDITION.
--- NOTE | 2021-04-08 05:30 | NUR ---
3RD UNIT OF BLOOD STARTED.
--- NOTE | 2021-04-08 05:55 | NUR ---
PROVIDED PT WITH APPLE JUICE PER REQUEST.
--- NOTE | 2021-04-08 07:02 | NUR ---
PT IS RESTING. EYES CLOSED, OPENS EYES TO SOUND. EQUAL RISE AND FALL OF CHEST WALL. VSS. PT IN STABLE CONDITION. ALL NEEDS MET AT THIS TIME. BED LOCKED IN LOWEST POSITION, SIDE RAILS X2.
--- NOTE | 2021-04-08 07:17 | NUR ---
REPORT GIVEN TO NATALIE YOU. TRANSFER OF CARE AT THIS TIME.
--- NOTE | 2021-04-08 07:50 | NUR ---
BLOOD TRANSFUSSION COMPLETED. NO DISTRESS NOTED, WILL CONTINUE TO MONITOR.
--- NOTE | 2021-04-08 08:20 | NUR ---
REPORT GIVEN TO NATALIE DE LA ROSA.
--- NOTE | 2021-04-08 08:37 | NUR ---
RECEIVED PATIENT FROM ER. PATIENT IS BEING ADMITTED FOR ANEMIA. PT IS A&O X4. PATIENT IS ON ROOM AIR, RESPIRATIONS ARE EVEN AND UNLABORED. PATIENT HAS IV SITES AT THE RIGHT AC 20 G AND LEFT HAND 20 G, BOTH SITES ARE DRY, PATENT, AND INTACT. PATIENT IS STABLE. ALL SAFETY PRECAUTIONS IN PLACE.
--- NOTE | 2021-04-08 08:43 | NUR ---
Pt transferred to Tele via WHEELCHAIR ROOM 104A. RJ ESTRADA AT BEDSIDE
--- NOTE | 2021-04-08 09:03 | NUR ---
PATIENT HAS BEEN SCREENED AND CATEGORIZED LOW NUTRITION RISK. PATIENT WILL BE SEEN WITHIN 7 DAYS OF ADMISSION. 04/14/[address]
[2021-04-08] MEDS: PANTOPRAZOLE 40 MG TABEC PO SCH (10:56)
--- NOTE | 2021-04-08 11:00 | NUR ---
ADMINISTERED SCHEDULED MEDICATIONS. PATIENT VERBALIZED UNDERSTANDING. ALL SAFETY PRECAUTIONS IN PLACE.
[2021-04-08] MEDS: HYDROcodone/APAP 7.5/325 MG 1 TAB PO PRN ×3 (11:12→21:18)
--- NOTE | 2021-04-08 13:30 | NUR ---
PATIENT RESTING IN BED. NO S/S OF DISTRESS. ALL SAFETY PRECAUTIONS IN PLACE.
[2021-04-08 16:00] VITALS: BP 119/72
[2021-04-08] MEDS: DEXT 5% /NACL 0.9% 1,000 ML IV SCH (16:34)
--- NOTE | 2021-04-08 16:35 | NUR ---
PATIENT COMPLAINS OF 6/10 LOWER BACK PAIN. ADMINISTERED PRN PAIN MEDICATION. WILL CONTINUE TO MONITOR.
--- NOTE | 2021-04-08 18:30 | NUR ---
DR. GAO AT BEDSIDE WITH PATIENT DISCUSSING POC.
--- NOTE | 2021-04-08 18:35 | NUR ---
DR. GAO DISCUSSED LOWER BACK PAIN OF PATIENT WITH DR. COLES. DR. COLES IS AWARE.
[2021-04-08 19:11] LABS: BASOPHILS # (AUTO) 0.1 K/uL (0.00-0.22); BASOPHILS % (AUTO) 1.8 % (0.0-2.0); EOSINOPHILS # (AUTO) 0.3 K/uL (0-0.4); EOSINOPHILS % (AUTO) 7.2 % (0.0-4.0); HEMATOCRIT 24.2 % (36-48); HEMOGLOBIN 7.3 g/dL (12.0-16.0); LYMPHOCYTES # (AUTO) 0.5 K/uL (2.5-16.5); LYMPHOCYTES % (AUTO) 12.4 % (20.5-51.1); MEAN CORPUSCULAR HEMOGLOBIN 23 pg (27-31); MEAN CORPUSCULAR HGB CONC 30 g/dL (33-37); MEAN CORPUSCULAR VOLUME 74.4 fL (80-94); MONOCYTES # (AUTO) 0.3 K/uL (0.8-1.0); MONOCYTES % (AUTO) 7.2 % (1.7-9.3); NEUTROPHILS # (AUTO) 3.1 K/uL (1.8-7.7); NEUTROPHILS % (AUTO) 71.4 % (42.2-75.2); PLATELET COUNT (AUTO) 151 K/uL (140-450); RED BLOOD CELL COUNT(AUTO) 3.25 MIL/uL (4.20-5.40); RED CELL DISTRIBUTION WIDTH 27.5 % (11.6-13.7); WHITE BLOOD COUNT (AUTO) 4.3 K/uL (4.8-10.8)
[2021-04-08 19:24] LABS: ALBUMIN 2.5 g/dL (3.4-5.0); ANION GAP 12.5 (8-16); CARBON DIOXIDE 23.4 mmol/L (21-32); CREATININE 0.7 mg/dL (0.6-1.3); POTASSIUM 3.9 mmol/L (3.5-5.1); TOTAL BILIRUBIN 0.5 mg/dL (0.0-1.0)
--- NOTE | 2021-04-08 19:34 | NUR ---
ENDORSED PATIENT TO LEASE EXAMINER RN FOR CONTINUITY OF CARE. PATIENT IS STABLE.
--- NOTE | 2021-04-08 19:35 | NUR ---
RECEIVED BEDSIDE REPORT FROM AM NURSE. PATIENT IN BED RESTING. NO SOB NOTED. BREATHING REGULAR NON LABORED. IVF D5NS INFUSING ON THE LEFT HAND. ALL SAFETY MEASURES ARE IN PLACE. CALL LIGHT WITHIN REACH.
[2021-04-08 20:00] VITALS: BP 110/58
--- NOTE | 2021-04-08 21:18 | NUR ---
PATIENT COMPLAINED OF MODERATE PAIN . NORCO 7.5 MG GIVEN BUT INEFFECTIVE.
--- NOTE | 2021-04-08 21:35 | NUR ---
COMPLAINED OF SEVERE LOWER BACK PAIN RADIATING TO BILATERAL HIPS. TEXTED DR. COLES, ORDERED MORPHINE 2MG Q6H PRN.
[2021-04-08] MEDS: MORPHINE SULFATE 2 MG/ML SYR IVP PRN (21:59)
--- NOTE | 2021-04-08 21:59 | NUR ---
MORPHINE 2MG GIVEN IVP ORDERED.
--- NOTE | 2021-04-08 22:59 | NUR ---
CHECKED PATIENT, PT STATED IT'S A LOT BETTER THE PAIN NOW IS AT 3.
[2021-04-09] VITALS: BP 108/60
[2021-04-09] MEDS: SODIUM FERRIC GLUCONATE 125 MG in NACL 0.9% 100 ML IV SCH ×2 (00:21→23:30)
--- NOTE | 2021-04-09 02:10 | NUR ---
MADE ROUNDS, PATIENT IS SLEEPING. NO SIGNS OF RESPIRATORY DISTRESS NOTED. CALL LIGHT WITHIN REACH.
[2021-04-09 04:00] VITALS: BP 119/67
[2021-04-09] MEDS: MORPHINE SULFATE 2 MG/ML SYR IVP PRN ×3 (04:21→18:18)
--- NOTE | 2021-04-09 04:21 | NUR ---
PT COMPLAINED OF SEVERE BACK PAIN. V/S 119/67, 57 ,18, 98.2, 100%. MORPHINE ADMINISTERED PER MD ORDERED.
--- NOTE | 2021-04-09 07:20 | NUR ---
ENDORSED TO AM NURSE FOR CONTINUITY OF CARE. PT IS STABLE.
--- NOTE | 2021-04-09 07:22 | NUR ---
RECEIVED REPORT FROM DOMESTIC VIOLENCE COUNSELOR RN FOR CONTINUITY OF CARE. PATIENT IS IN BED. NO S/S OF DISTRESS. ALL SAFETY PRECAUTIONS IN PLACE.
[2021-04-09 07:44] LABS: BASOPHILS # (AUTO) 0.1 K/uL (0.00-0.22); BASOPHILS % (AUTO) 1.3 % (0.0-2.0); EOSINOPHILS # (AUTO) 0.4 K/uL (0-0.4); HEMOGLOBIN 7.1 g/dL (12.0-16.0); LYMPHOCYTES # (AUTO) 0.8 K/uL (2.5-16.5); LYMPHOCYTES % (AUTO) 15.2 % (20.5-51.1); MEAN CORPUSCULAR HEMOGLOBIN 23 pg (27-31); MEAN CORPUSCULAR HGB CONC 31 g/dL (33-37); MEAN CORPUSCULAR VOLUME 75.1 fL (80-94); MONOCYTES # (AUTO) 0.4 K/uL (0.8-1.0); MONOCYTES % (AUTO) 7.3 % (1.7-9.3); NEUTROPHILS # (AUTO) 3.8 K/uL (1.8-7.7); NEUTROPHILS % (AUTO) 69.2 % (42.2-75.2); PLATELET COUNT (AUTO) 152 K/uL (140-450); RED BLOOD CELL COUNT(AUTO) 3.07 MIL/uL (4.20-5.40); RED CELL DISTRIBUTION WIDTH 27.3 % (11.6-13.7); WHITE BLOOD COUNT (AUTO) 5.5 K/uL (4.8-10.8)
[2021-04-09 08:00] VITALS: BP 116/65
[2021-04-09 08:08] LABS: T4 (THYROXINE) 6.1 ug/dL (4.5-12.0)
[2021-04-09] MEDS: DEXT 5% /NACL 0.9% 1,000 ML IV SCH (08:40)
--- NOTE | 2021-04-09 09:00 | NUR ---
DR COLES AT BEDSIDE WITH PATIENT DISCUSSING POC.
[2021-04-09] MEDS: PANTOPRAZOLE 40 MG TABEC PO SCH (10:07)
[2021-04-09] MEDS: diphenhydrAMINE 50 MG/ML VIAL IVP SCH ×2 (10:08→21:28)
[2021-04-09] MEDS: ALPRAZolam 0.5 MG TAB PO PRN ×2 (10:08→21:44)
--- NOTE | 2021-04-09 10:10 | NUR ---
ADMINISTERED SCHEDULED MEDICATIONS. PATIENT VERBALIZED UNDERSTANDING. ALL SAFETY PRECAUTIONS IN PLACE.
[2021-04-09 11:00] LABS: ANION GAP 13.2 (8-16); CARBON DIOXIDE 22.4 mmol/L (21-32); CREATININE 0.6 mg/dL (0.6-1.3); POTASSIUM 3.6 mmol/L (3.5-5.1)
[2021-04-09 12:00] VITALS: BP 126/50
--- NOTE | 2021-04-09 12:00 | NUR ---
US TECH AT BEDSIDE PERFORMING PROCEDURE WITH PATIENT.
--- NOTE | 2021-04-09 14:15 | NUR ---
PATIENT IS STABLE IN BED. NO S/S OF DISTRESS. ALL SAFETY PRECAUTIONS IN PLACE.
[2021-04-09 16:00] VITALS: BP 117/49
[2021-04-09] MEDS: CYCLOBENZAPRINE 10 MG TAB PO SCH (18:17)
--- NOTE | 2021-04-09 19:30 | NUR ---
ENDORSED PATIENT TO BUSINESS ADMINISTRATION INSTRUCTOR RN FOR CONTINUITY OF CARE. PATIENT STABLE.
[2021-04-09 20:00] VITALS: BP 125/69
[2021-04-09] MEDS: HYDROcodone/APAP 7.5/325 MG 1 TAB PO PRN (21:36)
[2021-04-10] VITALS: BP 120/65
[2021-04-10 01:09] LABS: TRANSFERRIN 416 mg/dL (192-364)
[2021-04-10] MEDS: MORPHINE SULFATE 2 MG/ML SYR IVP PRN ×2 (01:17→09:32)
--- NOTE | 2021-04-10 02:13 | NUR ---
BLOOD TRANSFUSION GIVEN ,VSS PAIN MEDICATION GIVEN .NO REACTION .
[2021-04-10 04:00] VITALS: BP 128/70
--- NOTE | 2021-04-10 05:45 | NUR ---
BLOOD COMPLETED WITHOUT ANY REACTION , VSS NO PAIN , PT SLEPT WELL AFTER PAIN CONTROL .
[2021-04-10 07:25] LABS: BASOPHILS % (AUTO) 0.6 % (0.0-2.0); EOSINOPHILS # (AUTO) 0.4 K/uL (0-0.4); EOSINOPHILS % (AUTO) 6.5 % (0.0-4.0); HEMATOCRIT 30.6 % (36-48); HEMOGLOBIN 9.4 g/dL (12.0-16.0); LYMPHOCYTES # (AUTO) 1.5 K/uL (2.5-16.5); LYMPHOCYTES % (AUTO) 23.6 % (20.5-51.1); MEAN CORPUSCULAR HEMOGLOBIN 24 pg (27-31); MEAN CORPUSCULAR HGB CONC 31 g/dL (33-37); MEAN CORPUSCULAR VOLUME 77.7 fL (80-94); MONOCYTES # (AUTO) 0.5 K/uL (0.8-1.0); MONOCYTES % (AUTO) 8.5 % (1.7-9.3); NEUTROPHILS # (AUTO) 3.7 K/uL (1.8-7.7); NEUTROPHILS % (AUTO) 60.8 % (42.2-75.2); PLATELET COUNT (AUTO) 161 K/uL (140-450); RED BLOOD CELL COUNT(AUTO) 3.94 MIL/uL (4.20-5.40); RED CELL DISTRIBUTION WIDTH 27.4 % (11.6-13.7); WHITE BLOOD COUNT (AUTO) 6.2 K/uL (4.8-10.8)
[2021-04-10 07:46] LABS: ANION GAP 11.7 (8-16); CARBON DIOXIDE 26.9 mmol/L (21-32); CREATININE 0.5 mg/dL (0.6-1.3); POTASSIUM 3.6 mmol/L (3.5-5.1)
[2021-04-10 08:00] VITALS: BP 99/71
[2021-04-10] MEDS: PANTOPRAZOLE 40 MG TABEC PO SCH (09:19)
[2021-04-10] MEDS: HYDROcodone/APAP 7.5/325 MG 1 TAB PO PRN (09:19)
[2021-04-10] MEDS: CYCLOBENZAPRINE 10 MG TAB PO SCH ×2 (09:19→13:13)
[2021-04-10] MEDS: DEXT 5% /NACL 0.9% 1,000 ML IV SCH (09:20)
[2021-04-10] MEDS: ALPRAZolam 0.5 MG TAB PO PRN (09:20)
[2021-04-10] MEDS ORDERED: NACL 0.45% 1,000 ML IV SCH (11:35)
[2021-04-10 12:00] VITALS: BP 118/70
[2021-04-10 14:19] VITALS: BP 112/57
[2021-04-10] MEDS ORDERED: ACET-8386 PO (14:44)
[2021-04-10] MEDS ORDERED: ALPR0.5T20 PO (14:44)
[2021-04-10 22:10] LABS: FERRITIN 1 ng/mL (15-150)
[2021-04-15 16:24] LABS: FOLIC ACID QNS ng/mL (>3.0)
== END 2021-04-10 14:30 | disposition home or self-care (01) | DRG 663 ==
LOC: MED 18:14 → MTU 23:02
PROVIDERS: ADMIT Family Medicine; ATTEND Family Medicine
PROC: 30233N1 Transfusion of Nonautologous Red Blood Cells into Peripheral Vein, Percutaneous Approach (ICD-10-PCS; principal; 2021-04-07)
DX: D50.9 Iron deficiency anemia, unspecified (principal); G93.41 Metabolic encephalopathy; K85.90 Acute pancreatitis without necrosis or infection, unspecified; E43 Unspecified severe protein-calorie malnutrition; R65.10 Systemic inflammatory response syndrome (SIRS) of non-infectious origin without acute organ dysfunction; E87.8 Other disorders of electrolyte and fluid balance, not elsewhere classified; K80.50 Calculus of bile duct without cholangitis or cholecystitis without obstruction; N13.4 Hydroureter; N92.0 Excessive and frequent menstruation with regular cycle; E78.1 Pure hyperglyceridemia; F32.9 Major depressive disorder, single episode, unspecified; N83.201 Unspecified ovarian cyst, right side; F41.9 Anxiety disorder, unspecified; D72.819 Decreased white blood cell count, unspecified; Z20.822 Contact with and (suspected) exposure to COVID-19; Z90.49 Acquired absence of other specified parts of digestive tract; Z80.42 Family history of malignant neoplasm of prostate; Z68.21 Body mass index [BMI] 21.0-21.9, adult; Z79.899 Other long term (current) drug therapy
CPT/HCPCS: 36415; 36430; 76770; 76856; 80048; 80053; 82150; 82607; 82728; 82746; 83010; 83036; 83540; 83690; 83735; 83880; 84100; 84436; 84439; 84443; 84479; 84484; 85025; 85045; 85610; 85730; 86886; 86900; 86901; 86920; 87081; 96361; 96365; 99285; J1200; J2270; J2405; J2916; P9016; Q0092; Q9967

== ENCOUNTER 2022-03-21 22:06 | Emergency (ER) | payer BC, MEDICAID ==
[~2022-03-21] VITALS: Ht 165.1 cm; Wt 59.9 kg
[~2022-03-21 22:06] MED LIST changes: +ACET-8386 PO; +ALPR0.5T20 PO; -NAPR-54 PO; -NITR100C7 PO
[2022-03-21 22:15] VITALS: BP 140/90
--- NOTE | 2022-03-21 22:18 | NUR ---
TO LOBBY A/W BED AMBULATORY
--- NOTE | 2022-03-21 23:40 | NUR ---
SEEN AND EXAMINED BY NADIA
[2022-03-21] MEDS ORDERED: MORPHINE SULFATE 4 MG/ML SYR IVP ONE (23:55)
[2022-03-21] MEDS ORDERED: NACL 0.9% 1,000 ML IV ONE (23:55)
[2022-03-21] MEDS ORDERED: ONDANSETRON 4 MG/2 ML VIAL IVP ONE (23:55)
[2022-03-22 00:11] LABS: BASOPHILS % (AUTO) 1.2 % (0.0-2.0); EOSINOPHILS # (AUTO) 0.1 K/uL (0-0.4); EOSINOPHILS % (AUTO) 4.3 % (0.0-4.0); LYMPHOCYTES # (AUTO) 0.8 K/uL (2.5-16.5); LYMPHOCYTES % (AUTO) 28.4 % (20.5-51.1); MEAN CORPUSCULAR HEMOGLOBIN 18 pg (27-31); MEAN CORPUSCULAR HGB CONC 28 g/dL (33-37); MONOCYTES # (AUTO) 0.3 K/uL (0.8-1.0); MONOCYTES % (AUTO) 8.4 % (1.7-9.3); NEUTROPHILS # (AUTO) 1.7 K/uL (1.8-7.7); NEUTROPHILS % (AUTO) 57.7 % (42.2-75.2); PLATELET COUNT (AUTO) 155 K/uL (140-450); RED BLOOD CELL COUNT(AUTO) 3.49 MIL/uL (4.20-5.40); RED CELL DISTRIBUTION WIDTH 20.7 % (11.6-13.7)
[2022-03-22 00:20] LABS: HEMOGLOBIN 6.2 g/dL (12.0-16.0)
[2022-03-22 01:30] LABS: ALBUMIN 3.8 g/dL (3.4-5.0); ANION GAP 9.4 (8-16); CARBON DIOXIDE 27.2 mmol/L (21-32); CREATININE 0.8 mg/dL (0.6-1.3); POTASSIUM 3.6 mmol/L (3.5-5.1); TOTAL BILIRUBIN 0.6 mg/dL (0.0-1.0)
--- NOTE | 2022-03-22 01:37 | NUR ---
PT TO BED 09.
[2022-03-22] MEDS ORDERED: ONDANSETRON 4 MG/2 ML VIAL ONE (01:39)
[2022-03-22] MEDS ORDERED: MORPHINE SULFATE 4 MG/ML SYR ONE (01:40)
[2022-03-22 01:53] LABS: PROTHROMBIN TIME 9.6 secs (10.8-13.4)
--- NOTE | 2022-03-22 02:02 | NUR ---
36 YO F BIB SELF WITH C/C OF ABNORMAL LABS. PT WAS SENT BY PRIMARY FOR LOW HGB, IN NEED OF BLOOD TRANSFUSION. PT REPORTS SHE HAS BEEN FEELING TIRED LATELY, DENIES SOB AND CHEST PAIN. HX:ANEMIA NKA
--- NOTE | 2022-03-22 03:28 | NUR ---
Consent signed per JEAN-PAUL ABREU agreeing to administration of blood. Blood has been type and crossmatched. Blood sent from blood bank. Information on unit of blood checked against patient wristband at bedside by two nurses. All information matches. Patient or responsible democrat informed of potential complications associated with blood transfusion. Informed of possible transfusion reaction symptoms. Aware of need to notify nurse at once of itching, shortness of breath, flushing, feeling of impending doom, or other symptoms not previously present. Vital signs taken within 5 minutes prior to initiation of transfusion. RN will remain with patient for first 15 minutes of transfusion at which time vital signs will be re-assessed.
[2022-03-22] MEDS ORDERED: KETOROLAC 30 MG/ML VIAL IVP ONE ×2 (03:35→05:55)
--- NOTE | 2022-03-22 03:41 | NUR ---
PT ALDAIR FRASER
--- NOTE | 2022-03-22 05:25 | NUR ---
BLOOD TRANSFUSION COMPLETED. NO ADVERSE REACTIONS. PT TOLERATED WELL. VSS.
[2022-03-22] MEDS ORDERED: HYDROcodone/APAP 5/325 MG 1 TAB TAB PO ONE (05:45)
[2022-03-22] MEDS ORDERED: KETOROLAC 30 MG/ML VIAL ONE (05:52)
[2022-03-22 06:00] VITALS: BP 113/66
--- NOTE | 2022-03-22 06:00 | NUR ---
Patient discharged with v/s stable. Written and verbal after care instructions given and explained. Patient verbalized understanding. Ambulatory with steady gait. All questions addressed prior to discharge. Advised to follow up with PMD.
== END 2022-03-22 06:00 | disposition home or self-care (01) ==
LOC: MED 22:06
DX: D64.9 Anemia, unspecified (principal); R10.9 Unspecified abdominal pain; K85.90 Acute pancreatitis without necrosis or infection, unspecified; E78.1 Pure hyperglyceridemia; Z90.49 Acquired absence of other specified parts of digestive tract
CPT/HCPCS: 36415; 80053; 84702; 85025; 85610; 85730; 86886; 86900; 86901; 86920; 96361; 96374; 96375; 96376; 99291; 99292; J1885; J2270; J2405; J7030; P9016

== ENCOUNTER 2022-07-23 13:21 | Emergency (ER) | payer BC ==
[~2022-07-23] VITALS: Ht 165.1 cm; Wt 59.5 kg
[~2022-07-23 13:21] MED LIST changes: -ACET-8386 PO; +ACET-8905 PO
[2022-07-23 13:43] VITALS: BP 122/77
--- NOTE | 2022-07-23 13:55 | NUR ---
PT AMB TO BED 9.
[2022-07-23] MEDS ORDERED: MORPHINE SULFATE 4 MG/ML SYR IVP ONE ×2 (14:25→19:55)
[2022-07-23 14:44] LABS: BASOPHILS % (AUTO) 1.6 % (0.0-2.0); EOSINOPHILS # (AUTO) 0.1 K/uL (0-0.4); EOSINOPHILS % (AUTO) 2.4 % (0.0-4.0); HEMATOCRIT 21.1 % (36-48); LYMPHOCYTES # (AUTO) 0.7 K/uL (2.5-16.5); MEAN CORPUSCULAR HEMOGLOBIN 17 pg (27-31); MEAN CORPUSCULAR HGB CONC 27 g/dL (33-37); MONOCYTES # (AUTO) 0.1 K/uL (0.8-1.0); MONOCYTES % (AUTO) 5.9 % (1.7-9.3); NEUTROPHILS # (AUTO) 1.2 K/uL (1.8-7.7); NEUTROPHILS % (AUTO) 57.1 % (42.2-75.2); PLATELET COUNT (AUTO) 152 K/uL (140-450); RED BLOOD CELL COUNT(AUTO) 3.35 MIL/uL (4.20-5.40); RED CELL DISTRIBUTION WIDTH 20.3 % (11.6-13.7); WHITE BLOOD COUNT (AUTO) 2.1 K/uL (4.8-10.8)
[2022-07-23 15:00] LABS: ANION GAP 12.9 (8-16); CARBON DIOXIDE 27.6 mmol/L (21-32); CREATININE 0.6 mg/dL (0.6-1.3); HEMOGLOBIN 5.8 g/dL (12.0-16.0); POTASSIUM 3.5 mmol/L (3.5-5.1)
--- NOTE | 2022-07-23 16:00 | NUR ---
PT LAYING IN BED CALM, RELAXED. PT DOES ADMIT TO FEELING WEAK. UPDATED INFO WITH PT. PT SIGNED AND AWARE OF BLOOD TRANSFUSION. WILL CONTINUE TO MONITOR
--- NOTE | 2022-07-23 17:48 | NUR ---
NOTED LOW BP 63/38. STARTED FIRST UNIT OF PRBC. PLACED PT ON [place] POSITION. WILL CONTINUE TO MONITOR
--- NOTE | 2022-07-23 18:03 | NUR ---
INFORMED DR OGLESBY OF LOW BP. STARTED NS 0.9 1 LITER BOLUS
--- NOTE | 2022-07-23 18:46 | NUR ---
STARTED SECOND LITER NS 0.9 BOLUS. PT DENIES ANY PAIN OR DISTRESS. BP ABNORMAL, WILL CONTINUE TO MONITOR
--- NOTE | 2022-07-23 18:51 | NUR ---
RECHECKED BP WITH DIFFERENT MACHINE: BP NORMAL 133/74 72
--- NOTE | 2022-07-23 19:18 | NUR ---
handoff received from NATALIE Chinchilla. assumed care at this time. pt has c/o 02/06 headache. 1 unit blood pending.
--- NOTE | 2022-07-23 19:50 | NUR ---
15 MINS POST INFUSION WITH NO REACTION NOTED.
[2022-07-23 21:21] VITALS: BP 120/75
--- NOTE | 2022-07-23 21:21 | NUR ---
BLOOD TRANSFUSION COMPLETE WITH NO REACTION.
== END 2022-07-23 21:41 | disposition home or self-care (01) ==
LOC: MED 13:21
DX: N92.0 Excessive and frequent menstruation with regular cycle (principal); Z20.822 Contact with and (suspected) exposure to COVID-19; D64.9 Anemia, unspecified
CPT/HCPCS: 36415; 80048; 84703; 85025; 86886; 86900; 86901; 86920; 87426; 96374; 96376; 99285; J2270; P9016; 36430

== ENCOUNTER 2023-03-09 15:27 | Inpatient (IN) | payer BC, MEDICAID ==
[~2023-03-09] VITALS: Ht 165.1 cm; Wt 66.0 kg
[2023-03-09 16:23] VITALS: BP 120/65; PULSE 78; RESP 20; TEMP 97.8; O2SAT 100
[2023-03-09 17:44] LABS: BASOPHILS % (AUTO) 2.4 % (0.0-2.0); EOSINOPHILS # (AUTO) 0.1 K/uL (0-0.4); EOSINOPHILS % (AUTO) 3.2 % (0.0-4.0); LYMPHOCYTES # (AUTO) 0.4 K/uL (2.5-16.5); LYMPHOCYTES % (AUTO) 22.1 % (20.5-51.1); MEAN CORPUSCULAR HEMOGLOBIN 17 pg (27-31); MEAN CORPUSCULAR HGB CONC 27 g/dL (33-37); MEAN CORPUSCULAR VOLUME 61.8 fL (80-94); MONOCYTES # (AUTO) 0.2 K/uL (0.8-1.0); MONOCYTES % (AUTO) 9.5 % (1.7-9.3); NEUTROPHILS # (AUTO) 1.1 K/uL (1.8-7.7); NEUTROPHILS % (AUTO) 62.8 % (42.2-75.2); PLATELET COUNT (AUTO) 163 K/uL (140-450); RED BLOOD CELL COUNT(AUTO) 2.74 MIL/uL (4.20-5.40); RED CELL DISTRIBUTION WIDTH 20.4 % (11.6-13.7)
[2023-03-09 17:52] LABS: HEMATOCRIT 16.9 % (36-48); HEMOGLOBIN 4.6 g/dL (12.0-16.0)
[2023-03-09 17:53] LABS: WHITE BLOOD COUNT (AUTO) 1.8 K/uL (4.8-10.8)
[2023-03-09 18:13] LABS: ALBUMIN 2.5 g/dL (3.4-5.0); ANION GAP 10.2 (8-16); CALCIUM 7.4 mg/dL (8.5-10.1); CARBON DIOXIDE 26.3 mmol/L (21-32); CREATININE 0.6 mg/dL (0.6-1.3); POTASSIUM 4.5 mmol/L (3.5-5.1); TOTAL BILIRUBIN 0.3 mg/dL (0.0-1.0); TOTAL PROTEIN, SERUM 5.9 g/dL (6.4-8.2)
[2023-03-09] MEDS ORDERED: MORPHINE SULFATE 4 MG/ML SYR IVP ONE (18:30)
[2023-03-09] MEDS ORDERED: TRAZ-343 PO (19:24)
[2023-03-09] MEDS ORDERED: TRAM50TA3 PO (19:24)
[2023-03-09] MEDS ORDERED: PAX10 PO (19:24)
[2023-03-09 20:00] VITALS: BP 133/76; PULSE 84; RESP 15; RESP 18; TEMP 97.8; O2SAT 100
[2023-03-09 22:00] VITALS: BP 117/74; PULSE 73; RESP 15; O2SAT 100
[2023-03-09] MEDS ORDERED: ALPRAZolam 0.5 MG TAB PO PRN (23:00)
[2023-03-10] VITALS (11 sets, daily range): BP systolic 116–140; BP diastolic 58–85; PULSE 67–80; RESP 14–16; TEMP 96.8–98; O2SAT 99–100
[2023-03-10] MEDS ORDERED: LORazepam 2 MG/ML VIAL IVP PRN (07:55)
[2023-03-10] MEDS ORDERED: ACETAMINOPHEN 325 MG TAB PO PRN (07:55)
[2023-03-10] MEDS ORDERED: POTASSIUM CHLORIDE 10 MEQ TABER PO PRN (07:55)
[2023-03-10] MEDS ORDERED: MAG SULF 2000 MG/WATER PREMIX 50 ML IV PRN (07:55)
[2023-03-10] MEDS ORDERED: DOCUSATE SODIUM 100 MG GELCAP PO PRN (07:55)
[2023-03-10] MEDS ORDERED: ONDANSETRON 4 MG/2 ML VIAL IVP PRN (07:55)
[2023-03-10] MEDS ORDERED: ZOLPIDEM 5 MG TAB PO PRN (08:00)
[2023-03-10] MEDS: MORPHINE SULFATE 2 MG/ML SYR IVP PRN ×2 (08:53→12:33)
[2023-03-10] MEDS ORDERED: SODIUM FERRIC GLUCONATE 125 MG in NACL 0.9% 100 ML IV SCH (09:00)
[2023-03-10] MEDS ORDERED: PANTOPRAZOLE 40 MG INJ VIAL IVP SCH (09:00)
[2023-03-10] MEDS ORDERED: PARoxetine 10 MG TAB PO SCH (09:00)
[2023-03-10 10:38] LABS: EOSINOPHILS % (AUTO) 0.5 % (0.0-4.0); HEMATOCRIT 31.3 % (36-48); HEMOGLOBIN 9.8 g/dL (12.0-16.0); LYMPHOCYTES # (AUTO) 0.3 K/uL (2.5-16.5); LYMPHOCYTES % (AUTO) 5.8 % (20.5-51.1); MEAN CORPUSCULAR HEMOGLOBIN 22 pg (27-31); MEAN CORPUSCULAR HGB CONC 31 g/dL (33-37); MEAN CORPUSCULAR VOLUME 70.7 fL (80-94); MONOCYTES # (AUTO) 0.2 K/uL (0.8-1.0); MONOCYTES % (AUTO) 5.1 % (1.7-9.3); NEUTROPHILS # (AUTO) 4.3 K/uL (1.8-7.7); NEUTROPHILS % (AUTO) 87.6 % (42.2-75.2); PLATELET COUNT (AUTO) 156 K/uL (140-450); RED BLOOD CELL COUNT(AUTO) 4.43 MIL/uL (4.20-5.40); RED CELL DISTRIBUTION WIDTH 25.1 % (11.6-13.7); WHITE BLOOD COUNT (AUTO) 4.9 K/uL (4.8-10.8)
[2023-03-10] MEDS ORDERED: MAGN500T24 PO (10:55)
[2023-03-10 10:59] LABS: ANISOCYTOSIS 3+; OVALOCYTES 1+; SCHISTOCYTES 1+; TEAR DROP CELLS 1+
== END 2023-03-10 14:15 | disposition home or self-care (01) | DRG 663 ==
LOC: MED 15:27 → MIC 18:59
PROVIDERS: ADMIT Student in an Organized Health Care Education/Training Program; ATTEND Student in an Organized Health Care Education/Training Program
PROC: 30233N1 Transfusion of Nonautologous Red Blood Cells into Peripheral Vein, Percutaneous Approach (ICD-10-PCS; principal; 2023-03-09)
DX: D50.9 Iron deficiency anemia, unspecified (principal); E44.0 Moderate protein-calorie malnutrition; F32.A Depression, unspecified; F41.9 Anxiety disorder, unspecified; N92.0 Excessive and frequent menstruation with regular cycle; N83.209 Unspecified ovarian cyst, unspecified side; Z68.24 Body mass index [BMI] 24.0-24.9, adult
CPT/HCPCS: 36415; 36430; 80053; 82728; 83540; 83735; 85025; 86886; 86900; 86901; 86920; 87081; 96374; 96375; 99291; C9113; J2270; J2916; J3475; P9016

== ENCOUNTER 2023-06-19 11:57 | Inpatient (IN) | payer SELFPAY ==
[~2023-06-19] VITALS: Ht 165.1 cm; Wt 62.7 kg
[~2023-06-19 11:57] MED LIST changes: -ACET-8905 PO; -DOCU-299 PO; -FERR325E14 PO; +MAGN500T24 PO; +PAX10 PO; +TRAM50TA3 PO; +TRAZ-343 PO; -VITC500 PO
[2023-06-19 12:21] VITALS: BP 129/69; PULSE 97; RESP 18; TEMP 97.9; O2SAT 100
[2023-06-19 12:57] LABS: BASOPHILS % (AUTO) 2.3 % (0.0-2.0); EOSINOPHILS % (AUTO) 0.6 % (0.0-4.0); LYMPHOCYTES # (AUTO) 0.3 K/uL (2.5-16.5); LYMPHOCYTES % (AUTO) 15.4 % (20.5-51.1); MEAN CORPUSCULAR HEMOGLOBIN 19 pg (27-31); MEAN CORPUSCULAR HGB CONC 29 g/dL (33-37); MEAN CORPUSCULAR VOLUME 66.7 fL (80-94); MONOCYTES # (AUTO) 0.1 K/uL (0.8-1.0); MONOCYTES % (AUTO) 6.5 % (1.7-9.3); NEUTROPHILS # (AUTO) 1.3 K/uL (1.8-7.7); NEUTROPHILS % (AUTO) 75.2 % (42.2-75.2); PLATELET COUNT (AUTO) 112 K/uL (140-450); RED BLOOD CELL COUNT(AUTO) 2.68 MIL/uL (4.20-5.40); RED CELL DISTRIBUTION WIDTH 18.9 % (11.6-13.7)
[2023-06-19 13:31] LABS: HEMATOCRIT 17.9 % (36-48); HEMOGLOBIN 5.1 g/dL (12.0-16.0); WHITE BLOOD COUNT (AUTO) 1.8 K/uL (4.8-10.8)
[2023-06-19 13:43] LABS: ALBUMIN 2.3 g/dL (3.4-5.0); CALCIUM 7.5 mg/dL (8.5-10.1); CARBON DIOXIDE 27.6 mmol/L (21-32); CREATININE 0.6 mg/dL (0.6-1.3); POTASSIUM 3.6 mmol/L (3.5-5.1); TOTAL BILIRUBIN 0.4 mg/dL (0.0-1.0); TOTAL PROTEIN, SERUM 5.7 g/dL (6.4-8.2)
[2023-06-19] MEDS ORDERED: ALPR0.5T2 PO (13:52)
[2023-06-19 14:45] LABS: INR 0.9 (0.8-1.2); PARTIAL THROMBOPLASTIN TIME 21.9 secs (22-35.6); PROTHROMBIN TIME 9.4 secs (10.8-13.4)
[2023-06-19] MEDS ORDERED: ACETAMINOPHEN 325 MG TAB PO PRN (15:30)
[2023-06-19] MEDS ORDERED: ONDANSETRON 4 MG/2 ML VIAL IVP PRN (15:30)
[2023-06-19] MEDS ORDERED: HYDROcodone/APAP 5/325 MG 1 TAB TAB PO PRN (16:00)
[2023-06-19 16:23] VITALS: PULSE 85; RESP 18; O2SAT 100
[2023-06-19] MEDS: FERROUS SULFATE 325 MG TABEC PO SCH (17:31)
[2023-06-19] MEDS ORDERED: COMMUNICATION ORDER MC PRN (17:50)
[2023-06-19 18:00] VITALS: BP 121/81; PULSE 85; PULSE 89; RESP 18; TEMP 97.9; O2SAT 100
[2023-06-19] MEDS ORDERED: cefTRIAXone 1,000 MG in LIDOCAINE MPF 1% 2.1 ML IM SCH (18:00)
[2023-06-19] MEDS: ALPRAZolam 0.25 MG TAB PO PRN (18:41)
[2023-06-19 20:00] VITALS: BP 128/82; PULSE 76; PULSE 90; PULSE 97; RESP 21; TEMP 98; O2SAT 100; O2SAT 97
[2023-06-20] VITALS (8 sets, daily range): BP systolic 97–134; BP diastolic 61–82; PULSE 62–90; RESP 17–21; TEMP 96.9–98.4; O2SAT 97–100
[2023-06-20] MEDS: ALPRAZolam 0.25 MG TAB PO PRN ×2 (05:22→15:30)
[2023-06-20 08:08] LABS: FOLIC ACID 5.2 ng/mL (>3.0)
[2023-06-20] MEDS: FERROUS SULFATE 325 MG TABEC PO SCH ×3 (09:02→17:33)
[2023-06-20 09:49] LABS: BASOPHILS % (AUTO) 1.3 % (0.0-2.0); EOSINOPHILS # (AUTO) 0.1 K/uL (0-0.4); EOSINOPHILS % (AUTO) 1.6 % (0.0-4.0); HEMOGLOBIN 8.5 g/dL (12.0-16.0); LYMPHOCYTES # (AUTO) 0.4 K/uL (2.5-16.5); LYMPHOCYTES % (AUTO) 13.6 % (20.5-51.1); MEAN CORPUSCULAR HEMOGLOBIN 22 pg (27-31); MEAN CORPUSCULAR HGB CONC 30 g/dL (33-37); MEAN CORPUSCULAR VOLUME 72.4 fL (80-94); MONOCYTES # (AUTO) 0.2 K/uL (0.8-1.0); NEUTROPHILS # (AUTO) 2.6 K/uL (1.8-7.7); NEUTROPHILS % (AUTO) 77.5 % (42.2-75.2); PLATELET COUNT (AUTO) 118 K/uL (140-450); RED BLOOD CELL COUNT(AUTO) 3.87 MIL/uL (4.20-5.40); RED CELL DISTRIBUTION WIDTH 22.9 % (11.6-13.7); WHITE BLOOD COUNT (AUTO) 3.3 K/uL (4.8-10.8)
[2023-06-20 10:14] LABS: ANION GAP 7.5 (8-16); CALCIUM 7.6 mg/dL (8.5-10.1); CARBON DIOXIDE 29.3 mmol/L (21-32); CREATININE 0.6 mg/dL (0.6-1.3); POTASSIUM 3.8 mmol/L (3.5-5.1)
[2023-06-20] MEDS ORDERED: FERR-147 PO (21:02)
[2023-06-24 08:07] LABS: LD1 FRACTION 24 % (17-32); LD2 FRACTION 37 % (25-40); LD3 FRACTION 23 % (17-27); LD4 FRACTION 8 % (5-13); LD5 FRACTION 8 % (4-20)
== END 2023-06-20 22:40 | disposition home or self-care (01) | DRG 812 ==
LOC: MED 11:57 → MTU 13:51
PROVIDERS: ADMIT Internal Medicine; ATTEND Internal Medicine
PROC: 30233N1 Transfusion of Nonautologous Red Blood Cells into Peripheral Vein, Percutaneous Approach (ICD-10-PCS; principal; 2023-06-20)
DX: D50.9 Iron deficiency anemia, unspecified (principal); D61.818 Other pancytopenia; E78.1 Pure hyperglyceridemia; F41.9 Anxiety disorder, unspecified; N83.209 Unspecified ovarian cyst, unspecified side; N92.0 Excessive and frequent menstruation with regular cycle; Z83.3 Family history of diabetes mellitus; Z80.42 Family history of malignant neoplasm of prostate
CPT/HCPCS: 36415; 76856; 80048; 80053; 81025; 82607; 82746; 83540; 83625; 83880; 85025; 85045; 85610; 85651; 85730; 86140; 86886; 86900; 86901; 86920; 87081; 99285; J0696; J2001; J2405; P9016

== ENCOUNTER 2023-10-19 11:15 | Inpatient (IN) | payer MEDICAID ==
[~2023-10-19] VITALS: Ht 165.1 cm; Wt 59.9 kg
[~2023-10-19 11:15] MED LIST changes: +ALPR0.5T2 PO; -ALPR0.5T20 PO; +FERR-147 PO; -MAGN500T24 PO; -PAX10 PO; -TRAM50TA3 PO; -TRAZ-343 PO
[2023-10-19 11:48] VITALS: BP 89/52; PULSE 120; RESP 16; TEMP 98.9; O2SAT 98
[2023-10-19 12:15] LABS: BASOPHILS % (AUTO) 0.8 % (0.0-2.0); EOSINOPHILS # (AUTO) 0.1 K/uL (0-0.4); EOSINOPHILS % (AUTO) 1.5 % (0.0-4.0); HEMATOCRIT 23.5 % (36-48); HEMOGLOBIN 7.4 g/dL (12.0-16.0); LYMPHOCYTES # (AUTO) 0.8 K/uL (2.5-16.5); LYMPHOCYTES % (AUTO) 19.4 % (20.5-51.1); MEAN CORPUSCULAR HEMOGLOBIN 24 pg (27-31); MEAN CORPUSCULAR HGB CONC 32 g/dL (33-37); MEAN CORPUSCULAR VOLUME 75.9 fL (80-94); MONOCYTES # (AUTO) 0.2 K/uL (0.8-1.0); MONOCYTES % (AUTO) 5.5 % (1.7-9.3); NEUTROPHILS # (AUTO) 3.2 K/uL (1.8-7.7); NEUTROPHILS % (AUTO) 72.8 % (42.2-75.2); PLATELET COUNT (AUTO) 157 K/uL (140-450); RED CELL DISTRIBUTION WIDTH 17.7 % (11.6-13.7); WHITE BLOOD COUNT (AUTO) 4.4 K/uL (4.8-10.8)
[2023-10-19 12:39] LABS: BILIRUBIN,URINE NEGATIVE (NEGATIVE); BLOOD, URINE NEGATIVE (NEGATIVE); COLOR,URINE YELLOW (YELLOW); LEUKOCYTE ESTERASE ,URINE TRACE (NEGATIVE); NITRITE, URINE POSITIVE (NEGATIVE); PH,URINE 6.5 (5.0-9.0); PROTEIN,URINE NEGATIVE (NEGATIVE); UGLUCOSE NEGATIVE (NEGATIVE); UROBILINOGEN,URINE 0.2 EU/dL (0.2 - 1)
[2023-10-19 12:40] LABS: ANION GAP 9.9 (8-16); CALCIUM 7.9 mg/dL (8.5-10.1); CARBON DIOXIDE 28.1 mmol/L (21-32); CREATININE 0.7 mg/dL (0.6-1.3)
[2023-10-19 12:44] LABS: ALBUMIN 2.8 g/dL (3.4-5.0); BILIRUBIN,DIRECT 0.1 mg/dL (0.0-0.3); TOTAL BILIRUBIN 0.3 mg/dL (0.0-1.0); TOTAL PROTEIN, SERUM 6.4 g/dL (6.4-8.2)
[2023-10-19 12:47] LABS: APPEARANCE,URINE SLIGHTLY CLOUDY (CLEAR)
[2023-10-19 12:48] LABS: RBC,URINE 0 /HPF (0-5)
[2023-10-19 12:49] LABS: BACTERIA,URINE 1+ /HPF (None Seen); MUCUS,URINE None Seen /LPF (None Seen); SQUAMOUS EPITHELIAL CELL,UR 4-10 (MOD) /LPF (0-3 (FEW)); WBC,URINE 0-5 /HPF (0-5)
[2023-10-19] MEDS: NACL 0.9% 1,000 ML IV SCH (13:12)
[2023-10-19] MEDS: LORazepam 2 MG/ML VIAL IVP ONE (13:23)
[2023-10-19] MEDS: KETOROLAC 30 MG/ML VIAL IVP ONE (13:28)
[2023-10-19] MEDS: MORPHINE SULFATE 4 MG/ML SYR IVP ONE (13:28)
[2023-10-19] MEDS: ONDANSETRON 4 MG/2 ML VIAL IVP ONE (13:34)
[2023-10-19] MEDS ORDERED: ACETAMINOPHEN 325 MG TAB PO PRN (13:45)
[2023-10-19] MEDS: NACL 0.9% 1,000 ML IV ONE (13:52)
[2023-10-19] MEDS: DEXT 5% / NACL 0.45% 1,000 ML IV SCH (14:24)
[2023-10-19] MEDS ORDERED: ALPRAZolam 0.5 MG TAB PO PRN (15:15)
[2023-10-19] MEDS: ALPRAZolam 0.5 MG TAB PO PRN (17:32)
[2023-10-19 20:10] VITALS: PULSE 108; RESP 18; O2SAT 100
[2023-10-19 20:22] VITALS: PULSE 108
[2023-10-19] MEDS: MIDODRINE 5 MG TAB PO SCH (23:12)
[2023-10-20] VITALS (18 sets, daily range): BP systolic 81–170; BP diastolic 37–108; PULSE 72–123; RESP 12–32; TEMP 97.2–98.6; O2SAT 98–100
[2023-10-20 06:53] LABS: BASOPHILS # (AUTO) 0.1 K/uL (0.00-0.22); BASOPHILS % (AUTO) 1.1 % (0.0-2.0); EOSINOPHILS % (AUTO) 0.7 % (0.0-4.0); LYMPHOCYTES # (AUTO) 0.9 K/uL (2.5-16.5); LYMPHOCYTES % (AUTO) 13.8 % (20.5-51.1); MEAN CORPUSCULAR HEMOGLOBIN 25 pg (27-31); MEAN CORPUSCULAR HGB CONC 32 g/dL (33-37); MEAN CORPUSCULAR VOLUME 76.3 fL (80-94); MONOCYTES # (AUTO) 0.2 K/uL (0.8-1.0); MONOCYTES % (AUTO) 3.6 % (1.7-9.3); NEUTROPHILS % (AUTO) 80.8 % (42.2-75.2); PLATELET COUNT (AUTO) 161 K/uL (140-450); RED BLOOD CELL COUNT(AUTO) 1.63 MIL/uL (4.20-5.40); WHITE BLOOD COUNT (AUTO) 6.2 K/uL (4.8-10.8)
[2023-10-20 07:02] LABS: HEMATOCRIT 12.5 % (36-48)
[2023-10-20 07:18] LABS: ANION GAP 9.6 (8-16); CALCIUM 7.1 mg/dL (8.5-10.1); CARBON DIOXIDE 25.3 mmol/L (21-32); CREATININE 0.7 mg/dL (0.6-1.3); POTASSIUM 3.9 mmol/L (3.5-5.1); TOTAL BILIRUBIN 0.2 mg/dL (0.0-1.0); TOTAL PROTEIN, SERUM 4.5 g/dL (6.4-8.2)
[2023-10-20] MEDS: PANTOPRAZOLE 40 MG INJ VIAL IVP SCH (10:19)
[2023-10-20] MEDS: MORPHINE SULFATE 2 MG/ML SYR IVP PRN (10:57)
[2023-10-20] MEDS: HYDROcodone/APAP 5/325 MG 1 TAB TAB PO PRN (14:26)
[2023-10-20] MEDS: bisacodyL 5 MG TABEC PO SCH (19:00)
[2023-10-20] MEDS: SUPREP BOWEL PREP KIT 354 ML SOLN.RECON PO SCH (19:00)
[2023-10-20 19:24] LABS: BASOPHILS % (AUTO) 1.1 % (0.0-2.0); EOSINOPHILS # (AUTO) 0.1 K/uL (0-0.4); EOSINOPHILS % (AUTO) 1.6 % (0.0-4.0); LYMPHOCYTES # (AUTO) 0.5 K/uL (2.5-16.5); LYMPHOCYTES % (AUTO) 12.4 % (20.5-51.1); MEAN CORPUSCULAR HEMOGLOBIN 27 pg (27-31); MEAN CORPUSCULAR HGB CONC 34 g/dL (33-37); MEAN CORPUSCULAR VOLUME 78.8 fL (80-94); MONOCYTES # (AUTO) 0.4 K/uL (0.8-1.0); MONOCYTES % (AUTO) 8.3 % (1.7-9.3); NEUTROPHILS # (AUTO) 3.3 K/uL (1.8-7.7); NEUTROPHILS % (AUTO) 76.6 % (42.2-75.2); PLATELET COUNT (AUTO) 119 K/uL (140-450); RED BLOOD CELL COUNT(AUTO) 2.18 MIL/uL (4.20-5.40); RED CELL DISTRIBUTION WIDTH 16.2 % (11.6-13.7); WHITE BLOOD COUNT (AUTO) 4.3 K/uL (4.8-10.8)
[2023-10-20 19:29] LABS: HEMATOCRIT 17.2 % (36-48); HEMOGLOBIN 5.8 g/dL (12.0-16.0)
[2023-10-20 19:45] LABS: ANION GAP 9.4 (8-16); CALCIUM 7.2 mg/dL (8.5-10.1); CARBON DIOXIDE 24.8 mmol/L (21-32); CREATININE 0.8 mg/dL (0.6-1.3); POTASSIUM 3.2 mmol/L (3.5-5.1)
[2023-10-20] MEDS ORDERED: PANTOPRAZOLE 40 MG INJ VIAL IVP SCH (19:55)
[2023-10-20] MEDS: PANTOPRAZOLE 40 MG INJ VIAL IVP ONE (21:02)
[2023-10-20] MEDS: PANTOPRAZOLE 80 MG in NACL 0.9% 100 ML IV SCH (21:14)
[2023-10-20] MEDS: bisacodyL 5 MG TABEC PO STA (22:58)
[2023-10-21] VITALS (17 sets, daily range): BP systolic 85–123; BP diastolic 42–84; PULSE 68–90; RESP 14–23; TEMP 97.2–98.8; O2SAT 98–100
[2023-10-21] MEDS: bisacodyL 5 MG TABEC PO ONE (01:48)
[2023-10-21] MEDS: SODIUM PHOSPHATE 118 ML ENEM RC SCH (03:13)
[2023-10-21 04:17] LABS: BASOPHILS % (AUTO) 0.8 % (0.0-2.0); EOSINOPHILS # (AUTO) 0.1 K/uL (0-0.4); EOSINOPHILS % (AUTO) 2.4 % (0.0-4.0); HEMATOCRIT 22.7 % (36-48); HEMOGLOBIN 7.7 g/dL (12.0-16.0); LYMPHOCYTES # (AUTO) 0.7 K/uL (2.5-16.5); LYMPHOCYTES % (AUTO) 13.5 % (20.5-51.1); MEAN CORPUSCULAR HEMOGLOBIN 28 pg (27-31); MEAN CORPUSCULAR HGB CONC 34 g/dL (33-37); MEAN CORPUSCULAR VOLUME 83.4 fL (80-94); MONOCYTES # (AUTO) 0.4 K/uL (0.8-1.0); NEUTROPHILS # (AUTO) 3.9 K/uL (1.8-7.7); NEUTROPHILS % (AUTO) 76.3 % (42.2-75.2); PLATELET COUNT (AUTO) 113 K/uL (140-450); RED BLOOD CELL COUNT(AUTO) 2.72 MIL/uL (4.20-5.40); RED CELL DISTRIBUTION WIDTH 17.5 % (11.6-13.7); WHITE BLOOD COUNT (AUTO) 5.1 K/uL (4.8-10.8)
[2023-10-21 05:02] LABS: ANION GAP 10.2 (8-16); CALCIUM 6.9 mg/dL (8.5-10.1); CARBON DIOXIDE 24.6 mmol/L (21-32); CREATININE 0.6 mg/dL (0.6-1.3); POTASSIUM 3.8 mmol/L (3.5-5.1); TOTAL BILIRUBIN 1.1 mg/dL (0.0-1.0); TOTAL PROTEIN, SERUM 4.3 g/dL (6.4-8.2)
[2023-10-21] MEDS: SODIUM PHOSPHATE 118 ML ENEM RC ONE (05:57)
[2023-10-21] MEDS: PANTOPRAZOLE 40 MG INJ VIAL ONE (06:12)
[2023-10-21 06:47] LABS: INR 1.03 (0.8-1.2); PARTIAL THROMBOPLASTIN TIME 22.1 secs (22-35.6); PROTHROMBIN TIME 10.8 secs (10.8-13.4)
[2023-10-21] MEDS: fentaNYL citrate 0.05 MG/ML VIAL ONE (07:23)
[2023-10-21] MEDS: diphenhydrAMINE 50 MG/ML VIAL ONE (07:23)
[2023-10-21] MEDS: LIDOCAINE 2% 100 MG/5 ML UJET TP ONE (07:24)
[2023-10-21] MEDS: MIDAZOLAM 2 MG/2 ML VIAL ONE (07:24)
[2023-10-21] MEDS: MIDAZOLAM 2 MG/2 ML VIAL IVP ONE (07:49)
[2023-10-21] MEDS: fentaNYL citrate 0.05 MG/ML VIAL IVP ONE (07:49)
[2023-10-21] MEDS: bisacodyL 5 MG TABEC PO SCH (10:01)
[2023-10-21] MEDS: BOWEL EVACUANT DRINK 4,000 ML PDS PO SCH (10:02)
[2023-10-21] MEDS: HYDROmorphone 1 MG/ML AMP IVP SCH (10:02)
[2023-10-22] VITALS (9 sets, daily range): BP systolic 90–122; BP diastolic 48–69; PULSE 60–90; RESP 12–20; TEMP 97.1–98.3; O2SAT 97–100
[2023-10-22 06:16] LABS: BASOPHILS % (AUTO) 0.9 % (0.0-2.0); EOSINOPHILS # (AUTO) 0.2 K/uL (0-0.4); EOSINOPHILS % (AUTO) 5.8 % (0.0-4.0); HEMATOCRIT 25.2 % (36-48); HEMOGLOBIN 8.6 g/dL (12.0-16.0); LYMPHOCYTES # (AUTO) 0.6 K/uL (2.5-16.5); LYMPHOCYTES % (AUTO) 16.6 % (20.5-51.1); MEAN CORPUSCULAR HEMOGLOBIN 29 pg (27-31); MEAN CORPUSCULAR HGB CONC 34 g/dL (33-37); MEAN CORPUSCULAR VOLUME 84.6 fL (80-94); MONOCYTES # (AUTO) 0.3 K/uL (0.8-1.0); MONOCYTES % (AUTO) 6.6 % (1.7-9.3); NEUTROPHILS # (AUTO) 2.7 K/uL (1.8-7.7); NEUTROPHILS % (AUTO) 70.1 % (42.2-75.2); PLATELET COUNT (AUTO) 114 K/uL (140-450); RED BLOOD CELL COUNT(AUTO) 2.98 MIL/uL (4.20-5.40); RED CELL DISTRIBUTION WIDTH 17.8 % (11.6-13.7); WHITE BLOOD COUNT (AUTO) 3.8 K/uL (4.8-10.8)
[2023-10-22 06:29] LABS: ANION GAP 10.3 (8-16); CALCIUM 7.3 mg/dL (8.5-10.1); CREATININE 0.6 mg/dL (0.6-1.3); POTASSIUM 3.3 mmol/L (3.5-5.1); TOTAL BILIRUBIN 0.6 mg/dL (0.0-1.0); TOTAL PROTEIN, SERUM 4.5 g/dL (6.4-8.2)
[2023-10-22] MEDS: fentaNYL citrate 0.05 MG/ML VIAL ONE (09:03)
[2023-10-22] MEDS: MIDAZOLAM 2 MG/2 ML VIAL ONE (09:03)
[2023-10-22] MEDS: FLUMAZENIL 0.5 MG/5 ML VIAL IVP ONE (09:04)
[2023-10-22] MEDS: NALOXONE 0.4 MG/ML VIAL ONE (09:04)
[2023-10-22] MEDS: MIDAZOLAM 2 MG/2 ML VIAL IV ONE (09:18)
[2023-10-22] MEDS: fentaNYL citrate 0.05 MG/ML VIAL IVP ONE (09:19)
[2023-10-22] MEDS: SIMETHICONE 40 MG/0.6 ML ONE (09:21)
[2023-10-22] MEDS ORDERED: KCL 20 MEQ IN 100 mL PREMIX 200 ML IV SCH (10:00)
[2023-10-22] MEDS: POTASSIUM CHLORIDE 40 MEQ, LIDOCAINE 1% 25 MG in NACL 0.9% 250 ML IV SCH (12:05)
[2023-10-23] VITALS: BP 105/55; PULSE 73; RESP 18; TEMP 97.8; O2SAT 100
[2023-10-23 00:14] VITALS: PULSE 66
[2023-10-23] MEDS: ONDANSETRON 4 MG/2 ML VIAL IVP PRN (01:35)
[2023-10-23 04:00] VITALS: BP 99/55; PULSE 63; PULSE 69; RESP 18; TEMP 98; O2SAT 100
[2023-10-23 07:26] LABS: BASOPHILS % (AUTO) 0.9 % (0.0-2.0); EOSINOPHILS # (AUTO) 0.3 K/uL (0-0.4); HEMATOCRIT 25.3 % (36-48); HEMOGLOBIN 8.4 g/dL (12.0-16.0); LYMPHOCYTES # (AUTO) 0.9 K/uL (2.5-16.5); LYMPHOCYTES % (AUTO) 27.7 % (20.5-51.1); MEAN CORPUSCULAR HEMOGLOBIN 29 pg (27-31); MEAN CORPUSCULAR HGB CONC 33 g/dL (33-37); MEAN CORPUSCULAR VOLUME 85.5 fL (80-94); MONOCYTES # (AUTO) 0.3 K/uL (0.8-1.0); MONOCYTES % (AUTO) 9.6 % (1.7-9.3); NEUTROPHILS # (AUTO) 1.7 K/uL (1.8-7.7); NEUTROPHILS % (AUTO) 52.8 % (42.2-75.2); PLATELET COUNT (AUTO) 118 K/uL (140-450); RED BLOOD CELL COUNT(AUTO) 2.95 MIL/uL (4.20-5.40); RED CELL DISTRIBUTION WIDTH 18.1 % (11.6-13.7); WHITE BLOOD COUNT (AUTO) 3.2 K/uL (4.8-10.8)
[2023-10-23 07:50] LABS: ANION GAP 8.4 (8-16); CALCIUM 7.4 mg/dL (8.5-10.1); CARBON DIOXIDE 27.3 mmol/L (21-32); CREATININE 0.6 mg/dL (0.6-1.3); POTASSIUM 3.7 mmol/L (3.5-5.1); TOTAL BILIRUBIN 0.3 mg/dL (0.0-1.0); TOTAL PROTEIN, SERUM 4.8 g/dL (6.4-8.2)
[2023-10-23 08:00] VITALS: BP 101/69; PULSE 55; PULSE 65; RESP 19; TEMP 96.8; O2SAT 100
[2023-10-23 12:00] VITALS: BP 104/68; PULSE 58; PULSE 65; PULSE 72; RESP 19; RESP 20; TEMP 96.8; O2SAT 100
[2023-10-23 12:39] VITALS: BP 102/68; PULSE 74; RESP 20; TEMP 98.2
== END 2023-10-23 14:23 | disposition home or self-care (01) | DRG 253 ==
LOC: MED 11:15 → MMU 13:53 → MTU 18:20 → MIC 10-20 14:54 → MTU 10-22 15:00
PROVIDERS: ADMIT Family Medicine; ATTEND Family Medicine
PROC: 30233N1 Transfusion of Nonautologous Red Blood Cells into Peripheral Vein, Percutaneous Approach (ICD-10-PCS; 2023-10-20)
PROC: 0DJD8ZZ Inspection of Lower Intestinal Tract, Via Natural or Artificial Opening Endoscopic (ICD-10-PCS; 2023-10-22)
PROC: 0DB68ZX Excision of Stomach, Via Natural or Artificial Opening Endoscopic, Diagnostic (ICD-10-PCS; 2023-10-22)
PROC: 0W3P8ZZ Control Bleeding in Gastrointestinal Tract, Via Natural or Artificial Opening Endoscopic (ICD-10-PCS; principal; 2023-10-22 11:20)
DX: K92.0 Hematemesis (principal); R57.1 Hypovolemic shock; R57.8 Other shock; E43 Unspecified severe protein-calorie malnutrition; R65.10 Systemic inflammatory response syndrome (SIRS) of non-infectious origin without acute organ dysfunction; D62 Acute posthemorrhagic anemia; K62.5 Hemorrhage of anus and rectum; R73.9 Hyperglycemia, unspecified; N39.0 Urinary tract infection, site not specified; R74.8 Abnormal levels of other serum enzymes; E53.8 Deficiency of other specified B group vitamins; E83.52 Hypercalcemia; Z68.22 Body mass index [BMI] 22.0-22.9, adult
CPT/HCPCS: 36415; 71045; 80048; 80053; 80076; 81001; 82948; 83690; 85025; 85610; 85730; 86886; 86900; 86901; 86920; 87040; 87081; 87086; 96361; 96374; 96375; 99285; C9113; J0696; J1170; J1200; J1885; J2001; J2060; J2250; J2270; J2310; J2405; J3010; J3480; J3490; J7030; J7060; P9016; P9017